=== PATIENT | female | born 1965 | race Caucasian/White ===

== ENCOUNTER 2021-02-02 08:23 | Outpatient (CLI) | payer BC, SELFPAY ==
--- NOTE | ~2021-02-02 | MM_ITS ---
EXAMINATION: MM screening nieves BI w doug HISTORY: Screening mammogram, family history of breast cancer in her mother. TECHNIQUE: Craniocaudal and mediolateral oblique 3-D tomosynthesis images were obtained and synthetic 2-D images were generated. CAD analysis was submitted and interpreted. COMPARISON: 12/07/2019, 08/24/2018, 08/19/2017 BREAST PARENCHYMAL COMPOSITION: The breasts are heterogeneously dense, which may obscure small masses . FINDINGS: RIGHT BREAST: An asymmetry is present in the posterior third of the outer breast 7 cm from the nipple on the craniocaudal view. LEFT BREAST: An asymmetry is present in the far posterior third of the outer breast 9 cm from the nip ple on the craniocaudal view. IMPRESSION: 1. Bilateral breast asymmetries. 2. Additional mammographic views and possible breast ultrasound are recommended. BI-RADS Category 0: Incomplete: Needs additional imaging evaluation. Reviewed, dictated and finalized at location A. IMPRESSION: 1. Bilateral breast asymmetries. 2. Additional mammographic views and possible breast ultrasound are recommended . BI-RADS Category 0: Incomplete: Needs additional imaging evaluation.
== END 2021-02-02 08:24 | disposition home or self-care (01) ==
LOC: CHSIMG 08:26
PROVIDERS: PCP Family Medicine; Visit Provider Family Medicine
DX: Z12.31 Encounter for screening mammogram for malignant neoplasm of breast (principal)
CPT/HCPCS: 77063; 77067

== ENCOUNTER 2021-02-26 09:49 | Outpatient (CLI) | payer BC, SELFPAY ==
--- NOTE | ~2021-02-26 | MM_ITS ---
EXAMINATION: MM diagnostic nieves BI w doug HISTORY: Bilateral breast asymmetries on screening mammogram TECHNIQUE: Additional 3-D tomosynthesis images of the breasts were performed and synthetic 2-D images were generated. CAD analysis was submitted and interpreted. COMPARISON: 02/02/2021, 12/07/2019,08/24/2018 FINDINGS: There is a return to baseline fibroglandular appearance with spot compression of both breas ts in the areas questioned on screening mammogram. No suspicious mass, calcification, or architectura l distortion are identified. IMPRESSION: 1. No mammographic evidence of malignancy. 2. Recommend routine screening mammography in one year. BI-RADS Category 1: Negative Reviewed, dictated and finalized at location A.
== END 2021-02-26 09:50 | disposition home or self-care (01) ==
LOC: CHSIMG 09:51
PROVIDERS: PCP Family Medicine; Visit Provider Nurse Practitioner Family
DX: R92.8 Other abnormal and inconclusive findings on diagnostic imaging of breast (principal)
CPT/HCPCS: 77062; 77066; G0279

== ENCOUNTER 2021-09-05 10:07 | Outpatient (CLI) | payer BC, SELFPAY ==
[2021-09-05 11:02] LABS: Alanine Aminotransferase 29 U/L (14-59); Albumin Level 4.1 g/dL (3.4-5.0); Alkaline Phosphatase 55 U/L (46-116); Anion Gap 9 mmol/L (8-16); Aspartate Amino Transferase 11 U/L (15-37); Bilirubin,Total 0.9 mg/dL (0.00-1.00); Blood Urea Nitrogen 19 mg/dL (7-18); Calcium 9.2 mg/dL (8.5-10.1); Carbon Dioxide 32 mmol/L (21-32); Chloride 103 mmol/L (98-108); Estimated Glomerular Filt Rate > 60; Glucose 102 mg/dL (70-99); Osmolality Calculated 300 mOsm/kg (285-295); Potassium 4.3 mmol/L (3.5-5.1); Sodium 144 mmol/L (136-145)
== END 2021-09-05 10:08 | disposition home or self-care (01) ==
LOC: CHSLAB 10:09
PROVIDERS: PCP Family Medicine; Visit Provider Student in an Organized Health Care Education/Training Program
DX: R79.89 Other specified abnormal findings of blood chemistry (principal)
CPT/HCPCS: 36415; 80053

== ENCOUNTER 2021-09-07 10:13 | Outpatient (CLI) | payer BC, SELFPAY ==
--- NOTE | ~2021-09-07 | US_ITS ---
US breast RT limited DATE: 09/07/2021 10:40 INDICATION: Right axillary and lateral breast pain for 10 days TECHNIQUE: Real-time and color flow imaging and right axilla and and areas of clinical complaint at r ight lower and upper outer quadrants COMPARISON: 02/26/2021 bilateral diagnostic mammogram FINDINGS: 12:00 3 cm from nipple: 2.5 x 3.4 mm mildly irregular hypoechoic lesion without internal vascularity or posterior shadowing; six-month ultrasound follow-up is recommended. 7:00 5 cm from nipple: Parallel circumscribed sonolucency measuring 2.8 x 5.3 x 8.9 mm, without inter nal vascularity or posterior shadowing, benign in appearance 7:00 3 cm from nipple: Parallel circumscribed sonolucency measuring 2 x 3.8 x 4.3 mm, without interna l vascularity or posterior shadowing, likely a small cyst 8:00 5 cm from nipple: Parallel circumscribed sonolucency measuring 2.8 x 4 x 8 mm, with through rodriguez smission, consistent with cyst, minimally septated. IMPRESSION: Probable benign 2.5 x 3.4 mm hypoechoic lesion at 12:00 3 cm from nipple; recommend 6 mon th targeted ultrasound follow-up BI-RADS Category 3: Probably benign Reviewed, dictated and finalized at Location A. Reviewed, dictated and finalized at location A. IMPRESSION: Probable benign 2.5 x 3.4 mm hypoechoic lesion at 12:00 3 cm from n ipple; recommend 6 month targeted ultrasound follow-up BI-RADS Category 3: Probably benign
== END 2021-09-07 10:14 | disposition home or self-care (01) ==
LOC: CHSIMG 10:16
PROVIDERS: PCP Family Medicine; Visit Provider Student in an Organized Health Care Education/Training Program
DX: N64.4 Mastodynia (principal)
CPT/HCPCS: 76642

== ENCOUNTER 2022-05-03 10:26 | Emergency (ER) | payer BC, SELFPAY ==
--- NOTE | 2022-05-03 10:30 | ED.SKABFB ---
HPI - Skin/Abscess/Foreign Bdy General Chief complaint: Skin/Abscess/Foreign Body Stated complaint: right thigh raised skin Time Seen by Provider: 05/03/22 10:30 Source: patient Mode of arrival: ambulatory Limitations: no limitations History of Present Illness HPI narrative: Ms. De La Cruz is a 56-year-old female patient presenting to the clinic today with complaints of red raised skin to the right thigh. She reports she fell 2 weeks ago and injured her right hand and landed on her right hip. States that she had x-rays on this hip and they were normal. Has a raised area of skin to the right lateral hip that is mildly painful at times when she is laying on it otherwise does not cause her any pain. She is wanting to know what to do for this Related Data Home Medications Medication Instructions Recorded Confirmed clonazepam 1 mg tablet (Klonopin) 1 mg PO DAILY 08/02/20 Allergies Allergy/AdvReac Type Severity Reaction Status Date / Time No Known Allergies Allergy Mild Verified 05/03/22 10:42 COLONSCOPY ANESTHESIA Allergy Severe BRADYCARDIA Uncoded 08/02/20 12:26 PRODUCT? Review of Systems Review of Systems: Pertinent positives per HPI. Patient denies any fever, chills, headache, visual changes, dizziness, cough, runny nose, sore throat, shortness of breath, chest pain, palpitations, nausea, vomiting, diarrhea, constipation, abdominal pain, or any urinary issues. PMFSH Past Medical History Medical History Raynauds syndrome REM sleep behavior disorder Trigeminal neuralgia Vaginal delivery x 3 Surgical History Surgical History History of hysterectomy History of renal stent History of tonsillectomy History of tubal ligation Family History Family History Father Family history of hypercholesterolemia Hypertension Malignant neoplasm of prostate Mother Hypertension Family history of malignant neoplasm of breast in first degree relative Grandparent Carcinoma of colon Other Family history of malignant neoplasm of breast Social History Social History Smoking status: Never smoker Alcohol intake: never Substance use: never Comments At the time of my signature, I reviewed and agree with the nursing past medical, surgical, social, and family history. There is no relevant family history pertinent to the patient complaint. Exam Narrative: General: Well-developed, well nourished, in no apparent distress Head: Normocephalic, atraumatic. Cardio: Regular rate and rhythm, s1 and s2 normal, no murmur appreciated. Resp: Clear to auscultation bilaterally, no rhonchi, rales, wheezing or rubs. Integumentary: Warden, warm, and dry, intact without lesion, old bruising noted to the right lateral hip as well as raised adipose tissue to area that is nonpainful to palpation. Course Course Emergency Course: Portions of this record may have been created with voice recognition software. Level of Care: Express Care Visit Vital Signs Vital signs: Vital signs reviewed MDM - Skin/Abscess/Foreign Bdy MDM Narrative Medical decision making narrative: At the time of visit patient was resting comfortably on the exam table. She has some old bruising to her right lateral hip with some raised adipose tissue. I suspect the patient has soft tissue injury versus hematoma but less likely the hematoma as this does not appear to be hard with palpation. I feel that this may be some displaced adipose tissue. Recommend getting an ultrasound for definitive cause. Supportive measures were discussed with the patient she voiced understand discharge instructions and agrees to treat plan Differential Diagnosis Differential diagnosis: Likely abscess of skin or subcutaneous tissue, cellulitis
[2022-05-03 10:36] VITALS: BP 130/83; PULSE 71; RESP 18; TEMP 37.4; O2SAT 100
== END 2022-05-03 10:50 | disposition home or self-care (01) ==
PROVIDERS: Emergency Provider Nurse Practitioner Family; PCP Family Medicine
DX: S79.921A Unspecified injury of right thigh, initial encounter (principal); X58.XXXA Exposure to other specified factors, initial encounter; I73.00 Raynaud's syndrome without gangrene
CPT/HCPCS: 99212; G0463

== ENCOUNTER 2022-05-07 07:11 | Outpatient (CLI) | payer BC, SELFPAY ==
--- NOTE | ~2022-05-07 | US_ITS ---
EXAMINATION: US soft tissue LE RT DATE: 05/07/2022 07:46 INDICATION: Right lateral thigh soft tissue mass following a fall on 04/20/2022. TECHNIQUE: Grayscale and Doppler ultrasound images of the right lateral thigh were obtained. COMPARISON: None. FINDINGS: Mostly anechoic fluid collection in the subcutaneous and cutaneous tissues of the right lat eral thigh, containing lobular echogenic nonvascular debris. IMPRESSION: 1. Likely subacute and resolving subcutaneous/cutaneous right thigh hematoma. 2. Recommend clinical follow-up to resolution. Additional imaging would be warranted if clinical find ings do not resolve or there is persistent pain. Reviewed, dictated and finalized at location K. IMPRESSION: 1. Likely subacute and resolving subcutaneous/cutaneous right thigh hematoma. 2. Recommend clinical follow-up to resolution. Additional imaging would be kate anted if clinical findings do not resolve or there is persistent pain.
== END 2022-05-07 07:12 | disposition home or self-care (01) ==
LOC: CHSIMG 07:13
PROVIDERS: PCP Family Medicine; Visit Provider Family Medicine
DX: R22.41 Localized swelling, mass and lump, right lower limb (principal)
CPT/HCPCS: 76882

== ENCOUNTER 2022-05-10 08:53 | Outpatient (CLI) | payer BC, SELFPAY ==
--- NOTE | ~2022-05-10 | CT_ITS ---
EXAMINATION: CT soft tissue neck w con DATE: 05/10/2022 09:58 INDICATION: Neck mass, feels a lump in the throat when swallowing. Sometimes chokes or a source x3 mo nths. TECHNIQUE: Computed tomography (CT) of the neck was performed with 100 mL Omnipaque 300 intravenous c ontrast. Automated exposure control and iterative reconstruction technique were employed. The dose-le ngth product was 400.94 mGy-cm. COMPARISON: None FINDINGS: The thyroid gland is unremarkable. The submandibular and parotid glands are symmetric. There is n o cervical lymphadenopathy. There are no masses identified. The superior mediastinum is unremarka ble. The airway is unremarkable. Parapharyngeal and pre-glottic fat planes are preserved. No si gnificant arterial occlusion or stenosis. The orbits are unremarkable. Visualized sinuses and mast oid air cells are well aerated. Visualized lung parenchyma clear. No acute osseous finding. IMPRESSION: 1. Normal CT soft tissue neck findings. Reviewed, dictated and finalized at location K.
== END 2022-05-10 08:54 | disposition home or self-care (01) ==
LOC: CHSIMG 08:54
PROVIDERS: PCP Family Medicine
DX: R22.1 Localized swelling, mass and lump, neck (principal)
CPT/HCPCS: 70491; Q9967

== ENCOUNTER 2022-06-19 12:23 | Emergency (ER) | payer BC, SELFPAY ==
--- NOTE | 2022-06-19 12:36 | ED.FEMALEGU ---
HPI - Female Genitourinary General Chief complaint: Urogenital-Female Stated complaint: Urinary Problem Time Seen by Provider: 06/19/22 12:30 Source: patient and RN notes reviewed History of Present Illness HPI Narrative: Patient is a 56-year-old female who presents the urgent care with complaints of a possible UTI. Patient states that she has a strong history of urinary tract infections but after a stent was placed in the kidney over 1 year ago she has not had a urinary tract. Patient states at 1130 this morning she felt some urgency, frequency, suprapubic pressure and noticed blood when she wiped. Patient denies any nausea, vomiting, fever, abdominal pain or low back pain. Patient has not done anything [id number] for her symptoms. No other acute complaints. No acute distress noted. Patient aware of the plan of care. Some parts of this dictation were generated by voice recognition software and may contain typographical and/or grammatical inaccuracies. Related Data Home Medications Medication Instructions Recorded Confirmed clonazepam 1 mg tablet (Klonopin) 1.5 mg PO HS 08/02/20 06/19/22 melatonin 10 mg tablet 10 mg PO HS 06/19/22 06/19/22 Allergies Allergy/AdvReac Type Severity Reaction Status Date / Time COLONSCOPY ANESTHESIA Allergy Severe BRADYCARDIA Uncoded 06/19/22 12:37 PRODUCT? Review of Systems Review of Systems: CONSTITUTIONAL: Denies fever, chills, or sweats. EYES: Denies visual changes, redness, or discharge. ENT: Denies rhinorrhea, congestion, sore throat, or otalgia. CARDIOVASCULAR: Denies chest pain, palpitations, or edema. RESPIRATORY: Denies cough or dyspnea. GASTROINTESTINAL: Denies abdominal pain, nausea, vomiting, or diarrhea. GENITOURINARY: Reports of urinary frequency, urgency, suprapubic pressure and blood in the urine SKIN: Denies rash or itching. MUSCULOSKELETAL: Denies back pain, joint pain, or myalgia. NEUROLOGIC: Denies headache, numbness, or weakness. All other systems reviewed are negative, except as documented in HPI. [facility] Past Medical History Medical History Raynauds syndrome REM sleep behavior disorder Trigeminal neuralgia Vaginal delivery x 3 Surgical History Surgical History History of hysterectomy History of renal stent History of tonsillectomy History of tubal ligation Family History Family History Father Family history of hypercholesterolemia Hypertension Malignant neoplasm of prostate Mother Hypertension Family history of malignant neoplasm of breast in first degree relative Grandparent Carcinoma of colon Other Family history of malignant neoplasm of breast Social History Social History Smoking status: Never smoker Alcohol intake: never Substance use: never Comments At the time of my signature, I reviewed and agree with the nursing past medical, surgical, social, and family history. There is no relevant family history pertinent to the patient complaint. Exam Narrative: GENERAL: This is a well-nourished, well-developed patient, in no apparent distress. HEAD: normocephalic, atraumatic. EYES: PERRL. Sclera clear/white. Vision is grossly intact. EARS: External ears normal NOSE: External nose normal with no obvious nasal discharge, nares without redness, no rhinorrhea. THROAT: Mucous membranes moist NECK: Neck supple CARDIOVASCULAR: Regular rate and rhythm without murmurs, gallops, or rubs. RESPIRATORY: Clear to auscultation. Breath sounds equal bilaterally. No wheezes, rales, or rhonchi. GASTROINTESTINAL: Abdomen soft, non-tender, nondistended. Bowel sounds are active. No hepato-splenomegaly, or palpable masses. No guarding. SKIN: warm, intact with no suspicious lesions or rash, good textu
[2022-06-19 12:41] VITALS: BP 118/78; PULSE 71; RESP 16; TEMP 36.6; O2SAT 99
[2022-06-19 12:42] VITALS: BP 118/78; PULSE 71; RESP 16; TEMP 36.6; O2SAT 99
== END 2022-06-19 12:57 | disposition home or self-care (01) ==
PROVIDERS: Emergency Provider Nurse Practitioner Family; PCP Family Medicine
DX: N39.0 Urinary tract infection, site not specified (principal); I73.00 Raynaud's syndrome without gangrene; Z96.1 Presence of intraocular lens; G47.9 Sleep disorder, unspecified
CPT/HCPCS: 81003; 87077; 87086; 87186; 99213; G0463

== ENCOUNTER 2022-08-15 07:47 | Outpatient (RCR) | payer BC, SELFPAY ==
--- NOTE | 2022-08-15 08:53 | PTOPEVAL1 ---
Assessment and note entered by JT File, PT Evaluation Information Assessment Status Evaluation Diagnosis L knee pain Onset 08/07/22 Subjective Information patient reports she fell and hurt her knee. she reports she had a broken hand at the time and slipped in her kitchen. she reports she feel and protected the R hand and fell on her knee. she reports she has increased pain with movement. she reports keeping the L knee slightly bent feels good. she reports she did have an xray of the L knee. she reports she has not had an mri of the L knee. she reports the xrays show tri-compartmental OA and a joint effusion. she reports she is going to [employer] in october and wants to be able to walk. she reports she has increased pain with walking and it makes her walk with a limp and then her hip and back hurts. Reported Pain Level Pain Score 1: Self Report Assessment PT Clinical Summary mrs. starr presents to skilled PT services for evaluation and treatment of L knee pain following a fall on the L knee. she presents this date with tenderness to palpation of the L patellar tendon/ inferior lateral patella, tenderness at the pes anserine bursa, and pain with terminal knee extension of the L LE. her symptoms indicate an injury to the L patellar tendon and pes anserine burse. she would do well to attend and participate in skilled PT services to improve her objective/ functional deficits and progress towards a return to her prior level functional activity performance /quality of life. Plan of Care Interventions Electrical Stimulation,Gait Training,Hot Pack/Cold Pack,Manual Therapy,Neuro Re-education,Patient/ Caregiver Educati,Therapeutic Activities, Therapeutic Exercise PT Services Indicated Yes Treatment Frequency and 2x weekly for 8 visits Duration These treatments will address the objective and functional deficits as defined above. The patient will be advanced safely and appropriately in order for the patient to progress towards his/her prior level of function. Additional exercises will be introduced and as well as a comprehensive home exercise program upon discharge, if needed, ?to ensure carryover of functional gains achieved in the clinic. This treatment plan has been reviewed and agreement upon by the patient.
--- NOTE | 2022-09-11 08:26 | PTOPREEVAL ---
Assessment and note entered by JT File, PT Evaluation Information Assessment Status Re-evaluation Diagnosis L knee pain Onset 08/07/22 Subjective Information patient reports she does feel better overall, but she continues to have pain in the L knee at times. she reports she feels something gets caught in the knee, and then it will pop or release. she reports she typically is worse at night, but has only had bouts of 5/10 pain in the L knee a few times in the past week. she reports she then feels better in the morning. Reported Pain Level Pain Score 0: Self Report Assessment PT Clinical Summary mrs. starr presents to skilled PT services with continued discomfort/pain in the L knee. she presents this date with continued symptoms and signs of L pes anserine bursitits/distal medial hamstrings tendonitis. she also presents with signs and symptoms of L medial meniscus tear. she would do well to continue skilled PT as she has only met goal for HEP education this date. she is progressing and notes improvement, but would do well to continue therapy to focus more on the hamstrings pain and improvement in gait mechanics. Plan of Care Interventions Gait Training,Hot Pack/Cold Pack,Manual Therapy, Neuro Re-education,Patient/Caregiver Educati, Therapeutic Activities,Therapeutic Exercise PT Services Indicated Yes Treatment Frequency and continue skilled PT 2x weekly for 4 more visits Duration These treatments will address the objective and functional deficits as defined above. The patient will be advanced safely and appropriately in order for the patient to progress towards his/her prior level of function. Additional exercises will be introduced and as well as a comprehensive home exercise program upon discharge, if needed, ?to ensure carryover of functional gains achieved in the clinic. This treatment plan has been reviewed and agreement upon by the patient.
--- NOTE | 2022-09-25 08:32 | PTOPDC ---
Assessment and note entered by JT File, PT Evaluation Information Assessment Status Discharge Diagnosis L knee pain Onset 08/07/22 Subjective Information patient reports she is doing well overall. she reports she has no pain in her L knee. she reports she has been compliant with exercises at home. she reports although she is pain free now, she is nervous about all the walking on her upcoming trip to [place]. Reported Pain Level Pain Score 0: Self Report Assessment PT Clinical Summary mrs. starr presents to skilled PT for her 12th skilled therapy visit this date. as of this date, she has no pain in the L knee, and displays full strength and rom of the L knee. she ambulates with normal gait mechanics and no antalgia. she has met all but 1 goal for skilled PT. she would do well to DC skilled PT this date and continue with HEP independent at home. Plan of Care Treatment Frequency and DC to independent HEP Duration
== END 2022-09-25 16:38 | disposition home or self-care (01) ==
LOC: CHSPT 07:47
PROVIDERS: PCP Family Medicine; Visit Provider Family Medicine Sports Medicine
DX: M25.562 Pain in left knee (principal)
CPT/HCPCS: 97014; 97110; 97112; 97140; 97161; 97530; G0283

== ENCOUNTER 2022-11-07 07:58 | Outpatient (CLI) | payer BC, SELFPAY ==
[2022-11-07 08:25] LABS: Basophils Absolute Auto 0.03 K/mm3 (0.00-0.10); Basophils Percent Auto 0.5 % (0.0-1.0); Eosinophils Absolute Auto 0.05 K/mm3 (0.02-0.50); Eosinophils Percent Auto 0.8 % (1.0-6.0); Hematocrit 44.9 % (35.0-49.0); Hemoglobin 14.2 g/dL (12.0-15.0); Immature Granulocyte Absolute 0.03 K/mm3 (0.00-0.00); Immature Granulocyte Percent A 0.5 % (0.0-0.0); Lymphocytes Absolute Auto 1.62 K/mm3 (1.10-4.50); Mean Corpuscular HGB Conc 31.6 g/dL (32.0-36.0); Mean Corpuscular Hemoglobin 29.2 pg (27.0-31.0); Mean Corpuscular Volume 92.2 fL (78.0-102.0); Mean Platelet Volume 10.2 fl (9.2-11.8); Monocytes Absolute Auto 0.41 K/mm3 (0.10-0.90); Monocytes Percent Auto 6.3 % (2.0-11.0); Neutrophils Absolute Auto 4.3 K/mm3 (1.7-7.2); Neutrophils Percent Auto 66.9 % (50.0-70.0); Platelet Count Result 273 K/mm3 (150-420); Red Blood Count 4.87 M/mm3 (4.20-5.40); Red Cell Distribution Width 13.4 % (11.6-14.4); White Blood Count 6.5 K/mm3 (4.8-10.8)
[2022-11-07 09:27] LABS: Alanine Aminotransferase 21 U/L (14-59); Albumin Level 3.9 g/dL (3.4-5.0); Alkaline Phosphatase 55 U/L (46-116); Anion Gap 6 mmol/L (8-16); Aspartate Amino Transferase < 10 U/L (15-37); Bilirubin,Total 0.6 mg/dL (0.00-1.00); Blood Urea Nitrogen 18 mg/dL (7-18); Calcium 9.2 mg/dL (8.5-10.1); Carbon Dioxide 30 mmol/L (21-32); Chloride 106 mmol/L (98-108); Cholesterol 258 mg/dL (0-200); Estimated Glomerular Filt Rate > 60; Glucose 95 mg/dL (70-99); HDL Direct 87 mg/dL (40-60); LDL Cholesterol Calculated 161 mg/dL (<130); Osmolality Calculated 295 mOsm/kg (285-295); Potassium 4.7 mmol/L (3.5-5.1); Sodium 142 mmol/L (136-145); Thyroid Stimulating Hormone 2.03 uIU/mL (0.36-3.74); Total Protein 6.9 g/dL (6.4-8.2); Triglycerides 50 mg/dL (0-150)
[2022-11-10 18:08] LABS: Vitamin D 25 Hydroxy 31 ng/mL (30-100)
== END 2022-11-07 07:59 | disposition home or self-care (01) ==
LOC: CHSLAB 07:59
PROVIDERS: PCP Family Medicine; Visit Provider Student in an Organized Health Care Education/Training Program
DX: Z00.00 Encounter for general adult medical examination without abnormal findings (principal)
CPT/HCPCS: 36415; 80053; 80061; 82306; 84443; 85025

== ENCOUNTER 2023-04-28 07:23 | Outpatient (CLI) | payer BC, SELFPAY ==
--- NOTE | ~2023-04-28 | MM_ITS ---
EXAMINATION: MM screening nieves BI w doug HISTORY: Screening mammogram TECHNIQUE: Craniocaudal and mediolateral oblique 3-D tomosynthesis images were obtained and synthetic 2-D images were generated. CAD analysis was submitted and interpreted. COMPARISON: September 07, 2021 Limited right breast ultrasound examination February 26, 2021 bilateral diagnostic mammogram February 02, 2021, December 07, 2019 bilateral screening mammogram examinations BREAST PARENCHYMAL COMPOSITION: The breasts are heterogeneously dense, which may obscure small masses . FINDINGS: There is a biopsy marker on the right; history of prior benign breast biopsy. Occasional be nign calcifications. There is no evidence of suspicious mass, calcification, or architectural distort ion to suggest malignancy in either breast. There has been no suspicious interval change. IMPRESSION: 1. No mammographic evidence of malignancy. 2. Recommend routine screening mammography in one year. BI-RADS Category 2: Benign finding(s). Reviewed, dictated and finalized at location A.
== END 2023-04-28 07:24 | disposition home or self-care (01) ==
LOC: CHSIMG 07:25
PROVIDERS: PCP Family Medicine; Visit Provider Family Medicine
DX: Z12.31 Encounter for screening mammogram for malignant neoplasm of breast (principal)
CPT/HCPCS: 77063; 77067

== ENCOUNTER 2023-10-28 18:23 | Emergency (ER) | payer BC, SELFPAY ==
--- NOTE | ~2023-10-28 | XR_ITS ---
EXAMINATION: XR foot RT min 3V DATE: 10/28/2023 18:38 INDICATION: Right foot pain. Fall. TECHNIQUE: 4 views of right foot were obtained. COMPARISON: Right foot radiographs 08/16/2019 FINDINGS: There is an oblique fracture of diaphysis of fifth metatarsal. The distal fracture fragment demonstrates 1 mm medial and dorsal displacement. There is mild osteoarthritis of some of the interp halangeal joints. There are enthesophytes at the posterior and plantar aspects of calcaneal tuberosit y. IMPRESSION: 1. Oblique fracture of diaphysis of fifth metatarsal. Reviewed, dictated and finalized at location E. 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
[2023-10-28 18:24] VITALS: BP 135/80; PULSE 71; RESP 17; TEMP 37.1; O2SAT 100
--- NOTE | 2023-10-28 18:43 | ED.GENADULT ---
HPI - General Adult General Chief complaint: Extremity Injury, Lower Stated complaint: right foot pain History of Present Illness HPI narrative: this is a 58-year-old female presenting ED with foot pain. Patient was walking when she tripped over some John wrapping paper. She developed pain swelling and bruising to the lateral portion of her foot. no other injuries. Patient is established with Dr. Reeves-orthopedics. Related Data Home Medications Medication Instructions Recorded Confirmed clonazepam 1 mg tablet (Klonopin) 1.5 mg PO HS 08/02/20 10/28/23 melatonin 10 mg tablet 10 mg PO HS 06/19/22 10/28/23 Allergies Allergy/AdvReac Type Severity Reaction Status Date / Time COLONSCOPY ANESTHESIA Allergy Severe BRADYCARDIA Uncoded 10/28/23 18:36 PRODUCT? PMFSH Past Medical History Medical History Raynauds syndrome REM sleep behavior disorder Trigeminal neuralgia Vaginal delivery x 3 Surgical History Surgical History History of hysterectomy History of renal stent History of tonsillectomy History of tubal ligation Family History Family History Father Family history of hypercholesterolemia Hypertension Malignant neoplasm of prostate Mother Hypertension Family history of malignant neoplasm of breast in first degree relative Grandparent Carcinoma of colon Other Family history of malignant neoplasm of breast Social History Social History Smoking status: Never smoker Alcohol intake: never Substance use: never Exam Narrative: APPEARANCE: No apparent distress. Head: atraumatic. EYES: EOMI, NOSE: Atraumatic NECK: Trachea midline RESPIRATORY: No increased rate of breathing CARDIOVASCULAR: RRR, ABDOMINAL: Non-distended MUSCULOSKELETAl: tenderness to palpation over the 5th metatarsal with swelling and ecchymosis. Cap refill less than 2 seconds sensation intact. NEURO: Alert. Moving 4/4 extremities SKIN:: Warm, dry. Normal color PSYCHIATRIC: Normal affect Course Vital Signs Vital signs: Vital Signs Temperature 98.7 F 10/28/23 18:24 Pulse Rate 71 10/28/23 18:24 Respiratory Rate 17 10/28/23 18:24 Blood Pressure 135/80 10/28/23 18:24 Pulse Oximetry 100 10/28/23 18:24 Oxygen Delivery Room Air 10/28/23 18:24 Temperature 98.7 F 10/28/23 18:24 Pulse Rate 71 10/28/23 18:24 Respiratory Rate 17 10/28/23 18:24 Blood Pressure 135/80 10/28/23 18:24 Pulse Oximetry 100 10/28/23 18:24 Oxygen Delivery Room Air 10/28/23 18:24 Medical Decision Making MDM Narrative Medical decision making narrative: -Course: 58-year-old female presenting right foot pain. X-ray showed a mildly displaced comminuted diaphyseal fracture of the 5th metatarsal. Patient is established with Dr. Reeves. Patient was placed in a posterior splint. instructed to follow-up with Ortho in 3-5 days. 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 -Procedures: Posterior mold splint -Interventions: Motrin, Tylenol -Shared decision making / Disposition: discharged with ortho follow-up in 3-5 days. -RX Motrin, Tylenol Vital Signs Vital Signs: Vital Signs Temperature 98.7 F 10/28/23 18:24 Pulse Rate 71 10/28/23 18:24 Respiratory Rate 17 10/28/23 18:24 Blood Pressure 135/80 10/28/23 18:24 Pulse Oximetry 100 10/28/23 18:24 Oxygen Delivery Room Air 10/28/23 18:24 Temperature 98.7 F 10/28/23 18:24 Pulse Ra
[2023-10-28 19:00] VITALS: BP 135/80; PULSE 71; RESP 17; TEMP 37.1; O2SAT 100
[2023-10-28] MEDS: ACETAMINOPHEN 500 MG TABLET 1000 MG PO (19:03)
[2023-10-28] MEDS: IBUPROFEN 400 MG TABLET 800 MG PO (19:04)
== END 2023-10-28 19:00 | disposition home or self-care (01) ==
LOC: CHSED 19:00
PROVIDERS: Emergency Provider Emergency Medicine; PCP Family Medicine
DX: S92.351A Displaced fracture of fifth metatarsal bone, right foot, initial encounter for closed fracture (principal); Z79.899 Other long term (current) drug therapy; W01.0XXA Fall on same level from slipping, tripping and stumbling without subsequent striking against object, initial encounter
CPT/HCPCS: 29515; 73630; 99284; A9270

== ENCOUNTER 2023-11-14 17:48 | Emergency (ER) | payer BC, SELFPAY ==
[2023-11-14 17:52] VITALS: BP 125/71; PULSE 69; RESP 18; TEMP 37; O2SAT 100
--- NOTE | 2023-11-14 18:44 | ED.URI ---
HPI - URI/Sore Throat General Chief Complaint: Upper Respiratory Infection Stated Complaint: throat/headache/chills Time Seen by Provider: 11/14/23 18:35 Source: patient, RN notes reviewed and old records reviewed Mode of arrival: ambulatory Limitations: no limitations History of Present Illness HPI Narrative: 58-year-old female who presents to [facility] with complaints cough, sore throat, fatigue, ear pain,headache and chills denies any known fevers.Patient reports that her throat is increasingly sore with symptoms starting on Friday 4-5 days ago. Patient just returned from being on cruise ship. Patient concerned for infection and can't see mother in [place]. Patient reports she has been taking Tylenol and Ibuprofen. MD elicited complaint: cough, sore throat and other (headache, chills, ear pain) Onset (ago): day(s) (5 days) Severity: moderate Able to tolerate fluids by mouth: Yes Treatments prior to arrival: acetaminophen and ibuprofen Related Data Home Medications Medication Instructions Recorded Confirmed clonazepam 1 mg tablet (Klonopin) 1.5 mg PO HS 08/02/20 10/29/23 melatonin 10 mg tablet 10 mg PO HS 06/19/22 10/29/23 Adult Probiotic 11/14/23 Natural Co-Q10 11/14/23 Vitamin B 11/14/23 ergocalciferol (vitamin D2) 1,250 11/14/23 mcg (50,000 unit) capsule ezetimibe 10 mg tablet mg 11/14/23 tacrolimus 0.1 % topical ointment topical 11/14/23 Allergies Allergy/AdvReac Type Severity Reaction Status Date / Time COLONSCOPY ANESTHESIA Allergy Severe BRADYCARDIA Uncoded 11/14/23 18:16 PRODUCT? Review of Systems Review of Systems: CONSTITUTIONAL:Reports malaise, chills, sweats, no known fever. EYES: Denies visual changes, redness, or discharge. ENT: Reports rhinorrhea, congestion, no sinus pain, no otalgia and positive sore throat. CARDIOVASCULAR: Denies chest pain, palpitations, or edema. RESPIRATORY: Reports cough.? Denies dyspnea. GASTROINTESTINAL: Denies abdominal pain, nausea, vomiting, diarrhea SKIN: Denies rash or itching. MUSCULOSKELETAL: Denies myalgia. NEUROLOGIC: Reports headache. All systems reviewed & are unremarkable except as noted in HPI and below PMFSH Past Medical History Medical History Raynauds syndrome REM sleep behavior disorder Trigeminal neuralgia Vaginal delivery x 3 Surgical History Surgical History History of hysterectomy History of renal stent History of tonsillectomy History of tubal ligation Family History Family History Father Family history of hypercholesterolemia Hypertension Malignant neoplasm of prostate Mother Hypertension Family history of malignant neoplasm of breast in first degree relative Grandparent Carcinoma of colon Other Family history of malignant neoplasm of breast Social History Social History Smoking status: Never smoker Alcohol intake: never Substance use: never 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 There is no relevant family history pertinent to the presenting complaint Exam Narrative: GENERAL: Well-appearing, well-nourished, and in no acute distress. HEAD: Normocephalic EYES: PERRLA, conjunctivae clear ENT: Nares clear, turbinates edematous and erythematous, clear discharge. Mucous membranes moist. TM pearly zavaleta with dull light reflex bilaterally; no tragal tenderness. Oropharynx erythematous without lesions. Tonsils not present and throat without exudate, no drooling, no hoarseness, no trismus, uvula midline. NECK: Supple. No lymphadenopathy CHEST: Clear to
== END 2023-11-14 19:00 | disposition home or self-care (01) ==
PROVIDERS: Emergency Provider Registered Nurse; PCP Family Medicine
DX: R05.9 Cough, unspecified (principal); J06.9 Acute upper respiratory infection, unspecified; Z20.822 Contact with and (suspected) exposure to COVID-19; Z79.899 Other long term (current) drug therapy
CPT/HCPCS: 87081; 87426; 87804; 87880; 99213; C9803; G0463

== ENCOUNTER 2023-11-24 08:41 | Outpatient (CLI) | payer BC, SELFPAY ==
--- NOTE | ~2023-11-24 | XR_ITS ---
Right foot Technique: AP, oblique, and lateral views were obtained. Clinical History: Fracture follow-up COMPARISON: 10/28/2023 Findings: Oblique fracture of the fifth metatarsal shaft again noted, with minimal interval healing. No new fracture or dislocation seen. Joint spaces are preserved without erosive or degenerative tuttle e. Plantar calcaneal spur present. Soft tissues are unremarkable. Impression: Minimal interval healing of fifth metatarsal shaft oblique fracture. Reviewed, dictated and finalized at location M. STORER Impression: Minimal interval healing of fifth metatarsal shaft oblique fracture.
== END 2023-11-24 08:42 | disposition home or self-care (01) ==
LOC: CHSIMG 08:43
PROVIDERS: PCP Family Medicine; Visit Provider Orthopaedic Surgery
DX: S92.351D Displaced fracture of fifth metatarsal bone, right foot, subsequent encounter for fracture with routine healing (principal); M79.671 Pain in right foot
CPT/HCPCS: 73630

== ENCOUNTER 2024-03-20 08:25 | Emergency (ER) | payer BC, SELFPAY ==
--- NOTE | ~2024-03-20 | XR_ITS ---
XR toe 1st RT min 2V DATE: 03/20/2024 08:40 INDICATION: Stubbed right great toe. Pain TECHNIQUE: 3 views COMPARISON: 11/24/2023 right foot FINDINGS: No fracture or dislocation is detected. Mild osteophytosis at the first metatarsophalangeal joint. IMPRESSION: No fracture or dislocation Reviewed, dictated and finalized at location A. IMPRESSION: No fracture or dislocation
[2024-03-20 08:25] VITALS: BP 131/69; PULSE 60; RESP 17; TEMP 36.6; O2SAT 100
--- NOTE | 2024-03-20 08:55 | ED.LOWEXIN ---
HPI - Extremity Injury (Lower) General Chief Complaint: Extremity Injury, Lower Stated Complaint: R toe injury Time Seen by Provider: 03/20/24 08:29 Source: patient Mode of arrival: ambulatory Limitations: no limitations History of Present Illness HPI Narrative: patient is a 58-year-old female with no significant past medical history that presents today with a right 1st big toe injury. Patient stubbed her toe. It turned black and blue is currently back in blue and hurts to walk on it. She wants to make sure that is not broken. Pain scale is about 5 in 10. She still has full movement but does have some edema. MD complaint: foot injury Onset (ago): hour(s) Injury: Right: toes Type of Injury: blunt Place: home Severity: moderate Severity scale (1-10): 4 Relieving factors: NSAID Exacerbating factors: nothing Context: fall Associated symptoms: snap/pop sensation Other symptoms: none Treatments prior to arrival: cold therapy Related Data Home Medications Medication Instructions Recorded Confirmed clonazepam 1 mg tablet (Klonopin) 1.5 mg PO HS 08/02/20 03/20/24 melatonin 10 mg tablet 10 mg PO HS 06/19/22 03/20/24 Adult Probiotic See Rx Instructions .Route .COMPLEX 11/14/23 03/20/24 Natural Co-Q10 See Rx Instructions .Route .COMPLEX 11/14/23 03/20/24 Vitamin B See Rx Instructions .Route .COMPLEX 11/14/23 03/20/24 ergocalciferol (vitamin D2) 1,250 See Rx Instructions .Route .COMPLEX 11/14/23 03/20/24 mcg (50,000 unit) capsule ezetimibe 10 mg tablet 10 mg PO DAILY 11/14/23 03/20/24 tacrolimus 0.1 % topical ointment See Rx Instructions .Route .COMPLEX 11/14/23 03/20/24 Allergies Allergy/AdvReac Type Severity Reaction Status Date / Time COLONSCOPY ANESTHESIA Allergy Severe BRADYCARDIA Uncoded 03/20/24 08:28 PRODUCT? Review of Systems Review of Systems: All systems reviewed & are unremarkable except as noted in HPI and below Constitutional: Constitutional: Reports no additional constitutional complaints Eyes: Eyes: Reports no additional eye complaints ENT: Reports system reviewed and no additional complaints, except as documented Cardiovascular: Cardiovascular: Reports no additional cardiovascular complaints Respiratory: Respiratory: Reports no additional respiratory complaints Gastrointestinal: Gastrointestinal: Reports no additional gastrointestinal complaints Genitourinary: Genitourinary: Reports no additional female genitourinary complaints Musculoskeletal: Musculoskeletal: Reports as per HPI Integumentary/Breasts: Skin/Breast: Reports system reviewed and no additional complaints, except as docu Neurologic: Reports system reviewed and no additional complaints, except as documented Psychiatric: Psychiatric: Reports no additional psychiatric complaints Endocrine: Endocrine: Reports no additional endocrine complaints Hematologic/Lymphatic: Hematologic/Lymphatic: Reports no additional hematologic/lymphatic complaints Allergic/Immunologic: Allergic/Immunologic: Reports no additional allergic/immunologic complaints PMFSH Past Medical History Medical History Raynauds syndrome REM sleep behavior disorder Trigeminal neuralgia Vaginal delivery x 3 Surgical History Surgical History History of hysterectomy History of renal stent History of tonsillectomy History of tubal ligation Family History Family History Father Family history of hypercholesterolemia Hypertension Malignant neoplasm of prostate Mother Hypertension Family history of malignant neoplasm of breast in first degree relative Grandparent Carcinoma of colon Other Family history of malignant neoplasm of breast Social History Social History Smoking status: Never smoker Alcohol intake: never Substance use: n
[2024-03-20 09:17] VITALS: BP 126/73; PULSE 65; RESP 17; TEMP 36.6; O2SAT 100
== END 2024-03-20 09:17 | disposition home or self-care (01) ==
PROVIDERS: Emergency Provider Family Medicine; PCP Family Medicine
DX: S93.501A Unspecified sprain of right great toe, initial encounter (principal); W22.8XXA Striking against or struck by other objects, initial encounter
CPT/HCPCS: 73660; 99283

== ENCOUNTER 2024-05-17 07:51 | Outpatient (CLI) | payer BC, SELFPAY ==
--- NOTE | ~2024-05-17 | US_ITS ---
EXAMINATION: US thyroid DATE: 05/17/2024 08:22 INDICATION: Disorder of thyroid and difficulty swallowing TECHNIQUE: Multiple ultrasound images of the thyroid were obtained. COMPARISON: None. FINDINGS: The right thyroid lobe measures 4.0 x 1.4 x 1.5 cm. The left thyroid lobe measures 4.5 x 1.4 x 1.2 c m. The thyroid isthmus measures 2 mm in thickness . There are a few small bilateral thyroid nodules w hich include solid nodules, anechoic cystic nodules and mixed solid and cystic nodules. The largest n odule on the right is a solid isoechoic TI RADS 3 nodule measuring 6 mm. The largest nodule on the le ft is a solid hypoechoic TI RADS 4 nodule measuring 4 mm. IMPRESSION: 1. There are a few bilateral 6 mm or smaller thyroid nodules, none meeting criteria for either biopsy or follow-up. Reviewed, dictated and finalized at location A. IMPRESSION: 1. There are a few bilateral 6 mm or smaller thyroid nodules, none meeting crit eria for either biopsy or follow-up.
== END 2024-05-17 07:52 | disposition home or self-care (01) ==
LOC: CHSIMG 07:53
PROVIDERS: PCP Family Medicine; Visit Provider Otolaryngology
DX: K22.4 Dyskinesia of esophagus (principal); K21.9 Gastro-esophageal reflux disease without esophagitis; E07.9 Disorder of thyroid, unspecified; E04.2 Nontoxic multinodular goiter
CPT/HCPCS: 76536

== ENCOUNTER 2024-08-20 14:08 | Outpatient (CLI) | payer BC, SELFPAY ==
--- NOTE | ~2024-08-20 | MM_ITS ---
EXAMINATION: MM screening nieves BI w doug HISTORY: Screening TECHNIQUE: Craniocaudal and mediolateral oblique 3-D tomosynthesis images were obtained and synthetic 2-D images were generated. CAD analysis was submitted and interpreted. COMPARISON: Comparison to multiple prior studies sequentially, with oldest reviewed study dated 08/10. BREAST PARENCHYMAL COMPOSITION: . Dense: The breasts are extremely dense, which lowers the sensitivit y of mammography. FINDINGS: There is no evidence of suspicious mass, calcification, or architectural distortion to sugg est malignancy in either breast. There has been no suspicious interval change. IMPRESSION: 1. No mammographic evidence of malignancy. 2. Recommend routine screening mammography in one year. BI-RADS Category 1: Negative Reviewed, dictated and finalized at location B.
== END 2024-08-20 14:09 | disposition home or self-care (01) ==
LOC: CHSIMG 14:10
PROVIDERS: PCP Family Medicine
DX: Z12.31 Encounter for screening mammogram for malignant neoplasm of breast (principal)
CPT/HCPCS: 77063; 77067

== ENCOUNTER 2024-12-20 08:06 | Emergency (ER) | payer BC, SELFPAY ==
--- OUTSIDE RECORDS SUMMARY | 2024-12-20 08:11 | XMS_ITS | Referral Summary ---
Author Organization [facility] Address [address] [place] [address] Care Team Providers Care Meat Manager Name Role Phone Unavailable Primary Care Provider Unavailabl e Source Comments [facility],non-owned Affiliates and Associated Physician Practices is amultiple site organization consisting of ambulatory clinics and hospital sitesin [place], [place], [place] and [place]. This disclosure is being madepursuant to the Care Everywhere program and may not contain all information available regarding this patient. Last updated 18.[facility] Social History Tobacco Use Types Packs/Day Years Used Date Smoking Tobacco: Never Assessed Sex and Gender Information Value Date Recorded Sex Assigned at Not on file Gender Identity Not on file Sexual Orientation Not on file Last Filed Vital Signs Vital Sign Reading Time Taken Comments Blood Pressure 117/79 04/27/2013 10:39 AM CDT Pulse 64 04/27/2013 10:39 AM CDT Temperature 37.6 C (99.7 F) 04/27/2013 10:39 AM CDT Respiratory Rate 16 04/27/2013 10:3 9 AM CDT Oxygen Saturation - - Inhaled Oxygen Concentration - - Weight 76.1 kg (167 lb 12.8 oz) 013 10:39 AM CDT Height 180.3 cm (5' 11 ) 04/27/2013 10: 39 AM CDT Body Mass Index 23.4 04/27/2013 10:39 AM CDT Plan of Treatment Not on file
--- OUTSIDE RECORDS SUMMARY | 2024-12-20 08:11 | XMS_ITS | Referral Summary ---
Author Organization [facility] Address [address] [place] [id number] Care Team Providers Care Reformatory Attendant Name Role Phone Pedro Chow MD Primary Care Provider [phone] Gail Hendrickson Unavailable Unavailable Encounters Date Type Department Care Team Description 12/09/[address] [facility] Gastroenterology at [address] [place] [address] Delfina Joyner LPN 12/08/2024 6:55 AM JOB COACH - 12/08/2024 11:59 PM JOB COACH Hospital Encounter [facility] Radiology [facility] [address] [place] [address] Liver hemangioma Discharge Disposition: Discharge to home or self care 11/30/2024 7:00 AM JOB COACH Therapy [facility] - [place] [address] [place] [address] Vivi Peralta, PT Other lack of coordination (Primary Dx); Dyspareunia in female; Constipation, unspecified constipation type; Fecal urgency 11/01/[address] [facility] Gastroenterology at [address] [place] [address] Travis Davidson MA 11/01/[address] [facility] Gastroenterology at [address] [place] [phone] Amy Goss MD 10/28/[address] [facility] Gastroenterology at [address] [place] [address] Amy Goss MD Liver hemangioma (Primary Dx) 10/28/2024 12:42 PM JOB COACH Anesthesia Event [address] [address] Peng Figueroa MD 10/28/2024 12:30 PM JOB COACH - 10/28/2024 1:00 PM JOB COACH Surgery [address] [address] Amy Goss MD COLONOSCOPY 10/28/2024 11:17 AM JOB COACH - 10/28/2024 2:03 PM JOB COACH Hospital Encounter [address] [address] Amy Goss MD Family history of colon cancer; Encounter for screening colonoscopy; Voice hoarseness Discharge Disposition: Discharge to home or self care 10/19/2024 7:00 AM JOB COACH Therapy [facility] Physical Therapy [facility] [place] [address] Vivi Peralta, PT Other lack of coordination (Primary Dx); Dyspareunia in female; Constipation, unspecified constipation type; Fecal urgency 10/05/2024 7:00 AM JOB COACH Therapy [facility] [place] [address] Vivi Peralta, PT Other lack of coordination (Primary Dx); Dyspareunia in female; Constipation, unspecified constipation type; Fecal urgency 09/21/2024 Plan of Care Documentation [facility] [place] [address] 09/21/2024 10:45 AM JOB COACH Therapy [facility] Physical [facility] [place] [address] Vivi Peralta, PT Other lack of coordination (Primary Dx); Dyspareunia in female; Constipation, unspecified constipation type; Fecal urgency from Last 3 Months Allergies No known active allergies Medications vitamin B complex capsule 11/14/19 24 Active melatonin 10 mg tablet Take 1 tablet (10 mg total) by mouth daily Active Lactobacillus acidophilus (Acidophilus) capsule Take 1 capsule by mouth every morning Active clonazePAM (KlonoPIN) 0.5 mg tabletIndicatio ns:Sleep Disorders Take 2 and a half tabs at bedtime (1.25 mg). If needed (and no side effects) you can increase to 3 tabs (1.5 mg) at bedtime. 90 tablet 5 07/16/20 24 Active triamcinolone (KENALOG) 0.1 % ointment Apply topically 2 (two) times a day 30 g 1 07/30/20 24 Active estradioL (ESTRACE) 0.01 % (0.1 mg/gram) vaginal cream Insert 0.5 g nightly into vagina Friday// Friday, then weekly as needed. 42.5 g 2 07/30/20 24 Active ezetimibe (ZETIA) 10 mg tablet TAKE ONE TABLET BY MOUTH DAILY 90 tablet 1 12/01/19 25 Active ezetimibe (ZETIA) 10 mg tablet TAKE ONE TABLET BY MOUTH DAILY 90 tablet 1 05/10/20 24 025 Discontinued Active Problems Problem Noted Date Diagnosed Date Multiple thyroid nodules 07/05/2024 Assessment & Plan (07/05/2024 5:01 PM CDT): Stable. Following with ENT. Dyskinesia of esophagus 05/11/2024 Thyroid disorder 05/11/2024 Mixed hyperlipidemia 02/03/2024 Assessment & Plan (07/05/2024 5:02 PM CDT): Has improved with Zetia. Will continue. Lipid panel with next set of labs. Assessment & Plan (02/03/2024 1:05 PM CDT): Improved with ezetimibe. Will continue. Keep up the excellent lifestyle. Annual physical exam 02/03/2024 Assessment & Plan (02/03/2024 10:27 AM CDT): In regard to health maintenance, Colonoscopy due for repeat. Referral placed. Mammogram ordered Shingrix vaccine recommended Eat a healthy diet: focus on lean meats and proteins, more fruits, vegetables and whole grains and low in sugars and fats. Limit red meat and avoid processed meat. Maintain a healthy weight; avoid being overweight. Aim for a normal body mass index (BMI) of 18.5-24.9. Help learning to eat healthier, we can set up appointment with skein inspector/playroom attendant. Have an active lifestyle, strive for 30 minutes of moderate exercise 5 times a week and strength or resistance training at least twice a week. Use broad-spectrum (UVA+UVB) sunscreen with SPF 30 or greater, is water resistant, limit time spent in the sun (10 am-4pm), wear hat, wear UV protective clothing, wear sunglasses. Never use a tanning bed. Skin that was irradiated may be more sensitive over your lifetime. Do not smoke or chew tobacco; participate in a smoking cessation program. Limit alcohol intake, 1 drink per day for a woman and 2 drinks per day for a man. Colon cancer screening 02/03/2024 Assessment & Plan (02/03/2024 1:05 PM CDT): Referral to GI for screening colonoscopy placed. She is due this year. Encounter for screening mamm ogram for malignant neoplasm of breast 02/03/2024 Assessment & Plan (02/03/2024 1:05 PM CDT): Mammogram ordered. Will plan accordingly once results received. Hot flashes 02/03/2024 Assessment & Plan (02/03/2024 1:06 PM CDT): Can try black cohosh. She would also like referral to gynecology for well-woman exam. She is status post hysterectomy. Referral placed. Will monitor response. Family history of colon cancer 02/03/2024 Encounter for screening colonoscopy 02/03/2024 Metatarsal fracture 01/23/2024 Laryngeal spasm 11/13/2022 Assessment & Plan (11/13/2022 3:18 PM JOB COACH): Pepcid 40 mg at bedtime for at least 2 months Call if no improvement for modified barium swallow Consider GI referral Avoid ear cleaning techniques Avoid water to ears Use dry washcloth in the morning to remove wetness, changing pillow case Neosporin or Aquaphor ointment to outer ear when it flares up for at least one week LPR discussed and handout provided Mass of right thigh 05/03/2022 Closed fracture of lower end of right radius wit h nonunion 04/22/2022 Overview (04/22/2022): Added automatically from request for surgery [id number] BMI 23.0-23.9, adult 02/07/2022 Assessment & Plan (02/15/2022 1:14 PM CDT): Discussed healthy diet and importance of regular physical activity. Voice hoarseness 02/07/2022 Assessment & Plan (07/05/2024 5:01 PM CDT): She is following with ENT. Will also have follow-up with GI. Intolerant of the famotidine as it is causing diarrhea. Will proceed with EGD and monitor diet. Assessment & Plan (02/15/2022 1:14 PM CDT): Will trial PPI, check labs and incomplete imaging as ordered. Nodule of neck 02/07/2022 Assessment & Plan (03/26/2022 2:33 PM CDT): Restart the Pepcid AC for 1-2 weeks Avoid spicy foods 64 ounces of caffeine free and soda free fluid daily Voice rest when possible for the next 2-[address] Neck - call with results Assessment & Plan (02/15/2022 1:13 PM CDT): Will check ultrasound of palpable area of concern today. Patient denies any difficulty swallowing, stridor or shortness of breath. Given referral today for ENT evaluation. Hemangioma of liver 07/06/2020 Assessment & Plan (07/06/2020 2:11 PM CDT): Patient had liver lesion proven to be hemangioma on typical MRI imaging findings. The size is small 2.2 cm. No follow-up is needed. In the rare occasion patient have rapid increase in size or the size become more than 10 cm then at that point surgical evaluation will be needed. Finding discussed with the patient. Patient will call our office for follow-up if any symptoms develop. Hydroureteronephrosis 01/28/2020 Overview (01/28/2020): Added automatically from request for surgery [id number] Gross hematuria 04/21/2019 Facial pain 07/21/2018 Mononucleosis syndrome 12/09/2012 REM sleep behavior disorder 05/25/2012 GERD (gastroesophageal reflux disease) Resolved Problems Problem Noted Date Diagnosed Date Resolved Date Cough in adult 01/23/2024 01/23/2024 Upper respiratory infection 01/23/2024 01/23/2024 UTI symptoms 01/23/2024 01/23/2024 Encounter for screening for lipid disorder 02/07/2022 05/05/2023 Assessment & Plan (02/15/2022 1:14 PM CDT): Results for orders placed or performed in visit on 02/07/22 POCT lipid panel Result Value Ref Range Cholesterol, POC 278 mg/dL HDL, POC 78 mg/dL Triglycerides, POC 268 mg/dL LDL, Direct, POC 146 mg/dL Chol/HDL Ratio, POC 3.6 Non-HDL Cholesterol, POC 200 mg/dL Cholesterol Total, POC 278 mg/dL Reviewed lipids and discussed diet and exercise recommendations. Liver lesion 02/13/2020 07/06/2020 Assessment & Plan (02/13/2020 12:09 PM CDT): Possibly hemangioma like noted the and her previous CT scan with contrast in 2012. The increase in size is somewhat concerning. Will get MRI of the liver for definite diagnosis. Follow-up in the office after the MRI. Immunizations Name Administration Dates Next Due Influenza, Unspecified 02/03/2024(Deferr ed: Patient Refused),08/05/2023(Deferred: Patient Refused),11/21/2022(Deferred: Patient Refused),07/11/2022(Deferred: Patient Refused),02/07/2022(Deferred: Patient Refused),01/31/2021(Deferred: Patient Refused),11/10/2019(Deferred: Patient Refused) Td, Not Adsorbed 06/12/1999 Td, adsorbed 06/12/1999,06/12/1999 Yellow Fever 05/05/2013,05/05/2013 Social History Tobacco Use Types Packs/Day Years Used Date Smoking Tobacco: Never Cigarettes Smokeless Tobacco: Never Tobacco Cessation:Counseling Given: Not Answered Alcohol Use Standard Drinks/Week Comments No 0 (1 standard drink = 0.6 oz pur e alcohol) AUDIT-C Answer Date Recorded Q1: How often do you have a drink containing alc ohol? Monthly or less 10/28/2024 Q2: How many drinks containi ng alcohol do you have on a typical day when you are drinking? 1 or 2 10/28/2024 Q3: How often do you have si x or more drinks on one occasion? Never 10/28/2024 PHQ-2 Answer Date Recorded PHQ-2 Total Score (If total score is 3 or more points, staff should administer the PHQ-9) 1 07/30/2024 Personal Safety Answer Date Recorded Have you ever been in or are you currently in a harmful physical or emotional relationship or is someone making you feel afraid or unsafe? 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 Not on file Not on file Last Filed Vital Signs Vital Sign Reading Time Taken Comments Blood Pressure 122/74 10/28/2024 1:49 PM JOB COACH Pulse 68 10/28/2024 1:49 PM JOB COACH Temperature 36.6 C (97.9 F) 10/28/2024 1:49 PM JOB COACH Respiratory Rate 16 10/28/2024 1:49 PM JOB COACH Oxygen Saturation 100% 10/28/2024 1:49 PM JOB COACH Inhaled Oxygen Concentration - - Weight 75.3 kg (166 lb) 10/28/2024 11:35 AM JOB COACH Height 180.3 cm (5' 11 ) 10/28/2024 11:35 AM JOB COACH Body Mass Index 23.15 10/28/2024 11:35 AM JOB COACH Plan of Treatment Not on file Medical Devices Implanted Type Area Accounting Specialist Device Identifier Shelf Expiration Date Model / Serial / Lot [employer] 3 Hole Anatomic Graft Window Radius Right Wrist Volar Narrow [id number] - [id number] Implanted:Qty: 1 on 04/23/2022 by Isamar Reeves MD at [facility] Right: Wrist [employer] AR-[id number]- [id number] / / [employer] Low Profile Screws 3.5mm 14mm Self Tap Solid Hexalobe Lock Ar-8935l-14 - [id number] Implanted:Qty: 1 on 04/23/2022 by Isamar Reeves MD at [facility] Right: Wrist [employer] AR-8935L-14 / / [employer] Screw Kreulock Compression Titanium 2.4x22mm [id number] - [id number] Implanted:Qty: 3 on 04/23/2022 by Isamar Reeves MD at [facility] Right: Wrist [employer] AR-8724VCL- 22 / / [employer] Screw Kreulock Compression Titanium 2.4x18mm [id number] - [id number] Implanted:Qty: 1 on 04/23/2022 by Isamar Reeves MD at [facility] Right: Wrist [employer] AR-8724VCL- 18 / / [employer] Screw Kreulock Compression Titanium 2.4x20mm [id number] - [id number] Implanted:Qty: 2 on 04/23/2022 by Isamar Reeves MD at [facility] Right: Wrist [employer] AR-8724VCL- 20 / / [employer] Low Profile Screws 3.5mm 16mm Self Tap Solid Hexalobe Lock Ar-8935l-16 - [id number] Implanted:Qty: 1 on 04/23/2022 by Isamar Reeves MD at [facility] Right: Wrist [employer] AR-8935L-16 / / [employer] Low Profile Screws 3.5mm 14mm Self Tap Solid Hexalobe Lock Ar-8935l-14 - [id number] Implanted:Qty: 1 on 04/23/2022 by Isamar Reeves MD at [facility] Right: Wrist [employer] AR-8935L-14 / / Explanted Type Area Accounting Specialist Device Identifier Shelf Expiration Date Model / Serial / Lot [employer] Jay 180-223 Contour 6fr 26cm Large Inner Lumen Low Profile Bladder Mian Taper Latex Free - [id number] Implanted:Qty: 1 on 02/01/2020 by Davie Rodriguez MD at [facility] Explanted:Qty: 1 on 02/03/2020 Left: Ureter [employer] Jay 08/25/2022 [id number] / / [id number] Procedures Procedure Name Priority Date/Time Associated Diagnosis Comments MRI ABDOMEN LIVER W WO CONTRAST Schedule Routine, Read Routine (OP Routine) 12/08/2024 8:33 AM JOB COACH Liver hemangioma H. PYLORI UREASE SCREEN (JAMES TEST) STAT 10/28/2024 1:30 PM JOB COACH ESOPHAGOGASTRODUODENOSCOPY BIOPSY 10/28/2024 12:39 PM JOB COACH Family history of colon cancer Encounter for screening colonoscopy Voice hoarseness COLONOSCOPY 10/28/2024 12:39 PM JOB COACH Family history of colon cancer Encounter for screening colonoscopy Voice hoarseness EGD 10/28/2024 11:20 AM JOB COACH COLONOSCOPY 10/28/2024 11:19 AM JOB COACH SURGICAL PATHOLOGY STAT 10/28/2024 10:25 AM JOB COACH Family history of colon cancer Encounter for screening colonoscopy Voice hoarseness DIAGNOSTIC MAMMOGRAM BILATER AL W EDER Schedule Routine, Read Routine (OP Routine) 08/20/2024 from Last 3 Months or Most Recently Relevant to Health Maintenance Results * MRI Abdomen Liver W WO Contrast (12/08/2024 8:33 AM JOB COACH) Anatomical Region Laterality Modality Body N/A Magnetic Resonan ce 12/08/2024 11:1 0 AM JOB COACH Impressions 12/08/2024 12:48 PM JOB COACH Unchanged to mildly increased size of a benign hepatic hemangioma. Dictated by: Peng Waller MD The radiology attending physician has personally reviewed this study, and had reviewed and/or edited this written report and agrees with it. Electronically signed by: Dalton [place] M.D. Narrative 12/08/2024 12:48 PM JOB COACH EXAMINATION: MAGNETIC RESONANCE IMAGING OF THE ABDOMEN WITH AND WITHOUT CONTRAST HISTORY: Hemangioma follow-up TECHNIQUE: Magnetic resonance imaging of the abdomen was performed prior to and following the uneventful administration of intravenous Gadolinium contrast. Protocol: Liver Contrast: gadoterate 14 mL COMPARISON: 03/02/2020 FINDINGS: Liver: No significant fat or iron deposition - Bile ducts: Nondilated - Focal liver lesions: Slight increase in a benign cavernous hemangioma in hepatic segment 7 measuring 2.5 cm, previously 2.3 cm (series 24, image 15). Simple hepatic cyst. No suspicious liver lesion. - Vasculature: Hepatic and portal veins are patent Gallbladder: Normal Pancreas: Normal Spleen: Normal Adrenals: Normal Kidneys: Bilateral simple renal cysts without hydronephrosis. Other Findings: Lung bases are clear. Imaged bowel is normal in caliber. No suspicious marrow replacing lesion Procedure Note Dalton Heredia MD - 12/08/2024 EXAMINATION: MAGNETIC RESONANCE IMAGING OF THE ABDOMEN WITH AND WITHOUT CONTRAST HISTORY: Hemangioma follow-up TECHNIQUE: Magnetic resonance imaging of the abdomen was performed prior to and following the uneventful administration of intravenous Gadolinium contrast. Protocol: Liver Contrast: gadoterate 14 mL COMPARISON: 03/02/2020 FINDINGS: Liver: No significant fat or iron deposition - Bile ducts: Nondilated - Focal liver lesions: Slight increase in a benign cavernous hemangioma in hepatic segment 7 measuring 2.5 cm, previously 2.3 cm (series 24, image 15). Simple hepatic cyst. No suspicious liver lesion. - Vasculature: Hepatic and portal veins are patent Gallbladder: Normal Pancreas: Normal Spleen: Normal Adrenals: Normal Kidneys: Bilateral simple renal cysts without hydronephrosis. Other Findings: Lung bases are clear. Imaged bowel is normal in caliber. No suspicious marrow replacing lesion IMPRESSION: Unchanged to mildly increased size of a benign hepatic hemangioma. Dictated by: Peng Waller MD The radiology attending physician has personally reviewed this study, and had reviewed and/or edited this written report and agrees with it. Electronically signed by: Dalton [place] M.D. Amy Goss MD IMG MRI PROCEDURES Final R esult * H. pylori urease screen (JAMES test) Tissue (10/28/2024 1:30 PM JOB COACH) H. pylori, rapid (JAMES) Positive Negative Tissue 10/28/2024 1:30 PM JOB COACH 10/28/2024 4:13 PM JOB COACH Amy Goss MD LAB MICROBIOLOGY - GENERAL ORDERABLES Final Result [facility] Department [place] [address] * EGD (10/28/2024 11:20 AM JOB COACH) Anatomical Region Laterality Modality Other Narrative Procedure Note Amy Goss MD - 10/28/2024 11:20 AM CST [facility] Patient Name: Nayeli Barreto Procedure Date: 10/28/2024 11:20AM Date of : 1965 Admit Type: Outpatient Age: 59 Gender: Female Attending MD: Amy Goss M.D. Room: [facility] ENDOSCOPY ROOM 1 Note Status: Finalized Patient Profile: This is a 59 year old female. Patient hascomplaints feeling a lump in the throat. She was seen and evaluated by ENT. She was started on Prilosec for possible acid reflux with no help her benefit. EGDfor evaluation. No typical heartburn no typicaldysphagia symptoms. Procedure: Upper GI endoscopy Indications: Dysphagia, Globus sensation Referring MD: Pedro Chow M.D. Providers: Amy Goss M.D. Impression: - Normal examined duodenum. - Normal stomach. Biopsied for CLOtest. - Normal esophagus and GE junction. Biopsied. Recommendation: - Continue present medications. Follow up pathology report. Medicines: Monitored Anesthesia Care Complications: No immediate complications. Estimated Blood Loss: Estimated blood loss: none. Procedure: Pre-Anesthesia Assessment: - Prior to the procedure, a History and Physicalwas performed, and patient medications and allergieswere reviewed. The patient's tolerance of previous anesthesia was also reviewed. The risks andbenefits of the procedure and the sedation options and risks were discussed with the patient. All questions were answered, and informed consent was obtained. Prior Anticoagulants: The patient has taken noanticoagulant or antiplatelet agents. ASA Grade Assessment: Per anesthesia note and evaluation. After reviewing the risks and benefits, the patient was deemed in satisfactory condition to undergo the procedure. The benefits, risks, and alternatives to theprocedure and sedation were discussed and informed consentwas obtained. The scope was passed under direct vision. The Endoscope GIF-H190 [id number] was introduced through the mouth, and advanced to the second partof duodenum. The upper GI endoscopy was accomplished without difficulty. The patient tolerated the procedure well. Findings: The examined duodenum was normal. Mucosal pattern was normal. The entire examined stomach was normal. Biopsies were taken with acold forceps for Helicobacter pylori testing using CLOtest. Retroflexion stomach in the gastric fundus and cardia appeared normal. The GE junction was normal. The examined esophagus was normal.Biopsies were taken with a cold forceps for histology. Electronically signed by Amy Goss M.D. Amy Goss M.D. 10/28/2024 1:26:48 PM Number of Addenda: 0 Note Initiated On: 10/28/2024 11:20 AM Procedure Code(s): --- Professional --- 65942, Esophagogastroduodenoscopy, flexible, transoral; with biopsy, single or multiple Diagnosis Code(s): --- Professional --- R13.10, Dysphagia, unspecified F45.8, Other somatoform disorders CPT copyright 2020 [employer]. All rights reserved. The codes documented in this report are preliminary and upon chair post machine operator reviewmay be revised to meet current compliance requirements. Recognized by the [place] [employer] for promoting quality in endoscopy Amy Goss MD ENDOSCOPY PROCEDURES Final Result * Colonoscopy (10/28/2024 11:19 AM JOB COACH) Anatomical Region Laterality Modality Other Narrative Procedure Note Amy Goss MD - 10/28/2024 11:19 AM CST [facility] Patient Name: Nayeli Barreto Procedure Date: 10/28/2024 11:19AM Date of : 1965 Admit Type: Outpatient Age: 59 Gender: Female Attending MD: Amy Goss M.D. Room: [facility] ENDOSCOPY ROOM 1 Note Status: Finalized Patient Profile: This is a 59 year old female. No family history of colon cancer. Noted recent change in the shape ofthe stool as noted more thin. No blood in the stool. Procedure: Colonoscopy Indications: Screening for colorectal malignant neoplasm, Last colonoscopy: July 2014 Referring MD: Pedro Chow M.D. Providers: Amy Goss M.D. Impression: - The entire examined colon is normal. - Internal hemorrhoids. - No specimens collected. Recommendation: - Repeat colonoscopy in 10 years for screening purposes. Medicines: Monitored Anesthesia Care Complications: No immediate complications. Estimated Blood Loss: Estimated blood loss: none. Procedure: Pre-Anesthesia Assessment: - Prior to the procedure, a History and Physicalwas performed, and patient medications and allergieswere reviewed. The patient's tolerance of previous anesthesia was also reviewed. The risks andbenefits of the procedure and the sedation options and risks were discussed with the patient. All questions were answered, and informed consent was obtained. Prior Anticoagulants: The patient has taken noanticoagulant or antiplatelet agents. ASA Grade Assessment: Per anesthesia note and evaluation. After reviewing the risks and benefits, the patient was deemed in satisfactory condition to undergo the procedure. The benefits, risks and alternatives of theprocedure and sedation were discussed and informed consentwas obtained. All questions were answered. Please referto the signed informed consent document in the medical record. The bowel preparation used was Miralax via split dose instruction. The bowel preparation usedwas bisacodyl tablets via split dose instruction. The scope was passed under direct vision. The Pediatric Colonoscope PCF-H190L [id number] was introducedthrough the anus and advanced to the the cecum, identifiedby appendiceal orifice and ileocecal valve. Thequality of the bowel preparation was good. Bowel prep was administered using a split dose. Findings: The perianal and digital rectal examinations were normal. The cecum appeared normal. The colon (entire examined portion) appeared normal. No polyps and no mass lesions noted. No inflammatory changes noted. Internal hemorrhoids were found during retroflexion. The hemorrhoids were small. Electronically signed by Amy Goss M.D. Amy Goss M.D. 10/28/2024 1:29:54 PM Number of Addenda: 0 Note Initiated On: 10/28/2024 11:19 AM Procedure Code(s): --- Professional --- 57312, Colonoscopy, flexible; diagnostic, including collection of specimen(s) by brushing or washing, when performed (separateprocedure) Diagnosis Code(s): --- Professional --- Z12.11, Encounter for screening for malignant neoplasm of colon K64.8, Other hemorrhoids CPT copyright 2020 [employer]. All rights reserved. The codes documented in this report are preliminary and upon chair post machine operator reviewmay be revised to meet current compliance requirements. Recognized by the [employer] for promoting quality in endoscopy us Amy Goss MD ENDOSCOPY PROCEDURES Final Result * Surgical pathology (10/28/2024 10:25 AM JOB COACH) Tissue (Esophageal biopsy) 10/28/2024 1:10 PM JOB COACH Narrative PATHOLOGY [facility] ([place] - 11/01/2024 11:22 AM JOB COACH EPIC results best viewed via link to PDF [facility] Department of Pathology [address] [place] [address] Note to Patients: This report may contain a detailed description of human tissue sent by a health care provider to the laboratory for pathologic evaluation. The content of this report is essential for diagnosis and may provide important critical findings. This information may be unfamiliar to patients to review without a medical professional present. It is advised that the patient review this report in the presence of a health care provider who can answer questions and explain the details. Final Report Patient Name: NAYELI BARRETO Address: [address] [place], [place] [id number]- Gender: F : 1965 (Age: 59) Service: Gastro Location: [facility] Hospital #: [id number] Patient Type: [facility] Taken: 10/28/2024 Received: 10/29/2024 Accessioned: 10/29/2024 Reported: 11/01/2024 Physician(s):Dr. Amy Goss M.D. Diagnosis: Esophagus, biopsy: - Fragments of benign squamous epithelium. Andrés Pond M.D. Report Electronically Reviewed and Signed Out By Andrés Pond M.D. 11/01/2024 11:22:10 Specimen(s) Received: A: Esophageal Biopsy Microscopic Description: Sections show fragments of benign squamous epithelium. No significant inflammatory infiltrate is seen. No fungal elements or viral cytopathic effect is seen. There is no evidence of dysplasia. No glandular mucosa is present. Clinical History: Family history of colon cancer. Screening colonoscopy. EGD. Gross Description: The specimen is submitted in a single formalin filled container labeled NAYELI BARRETO and esophageal biopsy . It is 5 fragments of thomas tissue measuring 1 mm. All in one cassette. Chad Ferreira R.N., P.A./Arsalan Humphrey M.D. REPORT IMAGES AND SCANNED DOCUMENTS, IF INCLUDED, ONLY VIEWABLE IN PDF VERSION OF REPORT The performance characteristics of some immunohistochemical stains, fluorescence in-situ hybridization tests and immunophenotyping by flow cytometry cited in this report (if any) were determined by the Surgical Pathology Department at [facility] as part of an ongoing aerospace quality engineer program and in compliance with federally mandated regulations drawn from the Clinical Laboratory Improvement Act of 1988 (CLIA '88). Some of these tests rely on the use of analyte specific reagents and are subject to specific labeling requirements by the US Food and Drug Administration. Such diagnostic tests may only be performed in a facility that is certified by the Department of Health and Human Services as a high complexity laboratory under CLIA '88. The FDA has determined that such clearance or approval is not necessary. This test is used for clinical purposes. It should not be regarded as investigational or for research. Nevertheless, federal rules concerning the medical use of analyte specific reagents require that the following disclaimer be attached to the report: This test was developed and its performance characteristics determined by the Surgical Pathology Department [facility]. It has not been cleared or approved by the U. S. Food and Drug Administration. Note for decalcified specimens: This assay has not been validated on decalcified tissues. Results should be interpreted with caution given the possibility of false negativity on decalcified specimens Amy Goss MD LAB PATHOLOGY ORDERABLES F inal Result PATHOLOGY [facility] ([place]) [address] [place] [address] * Diagnostic Mammogram Bilateral W Eder (08/20/2024) Anatomical Region Laterality Modality Breast Bilateral Mammography 08/20/2024 Historical Provider IMG MAMMO PROCEDURES Ronit l Result from Last 3 Months or Most Recently Relevant to Health Maintenance Insurance [employer] [facility] [employer] [place] [employer] [place] [employer] [place] Sub[place] Plan / Payer (Ef fective 2017-) Name:Nayeli Barreto Relation to Subscriber:Spouse Name:BarretoAlan daigleerin Gallegos Date of :1965 (Home) Address: [address] [place] [address] Payer ID:[id number] (NAIC) Type:BC OTHER Address: [address] [place] [id number] Advance Directives For more information, please contact: [phone] * Full Code (Latest Code Status on File) Date Activated Date Inactivated Comments 10/28/2024 11:28 AM 10/28/2024 6:08 PM * Full Code Date Activated Date Inactivated Comments 10/28/2024 11:28 AM 10/28/2024 11:28 AM * Full Code Date Activated Date Inactivated Comments 02/05/2020 11:03 AM 02/05/2020 7:16 PM Care Teams Reformatory Attendant Relationship Specialty Start Date End Date Pedro Chow MD [address] [place] [address] PCP - General Family Medicine 12/02/19 Gail Hendrickson COTA Host/Hostess Ground Occupational Therapy 07/11/22
--- OUTSIDE RECORDS SUMMARY | 2024-12-20 08:11 | XMS_ITS | Clinical Summary ---
Author Organization [facility] [employer] Address [address] [place] [address] Care Team Providers Care Stiff Leg Operator Name Role Phone Unavailable Primary Care Provider Unavailabl e Source Comments [facility] [employer],non-owned Affiliates and Associated Physician Practices is amultiple site organization consisting of ambulatory clinics and hospital sitesin [place], [place], [place] and [place]. This disclosure is being madepursuant to the Care Everywhere program and may not contain all information available regarding this patient. Last updated 18.[facility] [employer] Social History Tobacco Use Types Packs/Day Years [...] 04/27/2013 10:39 AM CDT Plan of Treatment Health Maintenance Due Date Last Done Comments COLOGUARD (AGES 45-75) - COL ON CA SCREENING 1965 COLON MONITORING 1965 COLONOSCOPY - COLON CA SCREENING 1964 CT COLONOGRAPHY - COLON CA SCREENING 1965 Colorectal Cancer Screening 1965 FIT - COLON CA SCREENING 1965 FLEX SIG - COLON CA SCREENING 1965 LIPID TESTING 1965 MAMMOGRAM 1965 PAP SMEAR 1964 HIV SCREENING 1979 HEPATITIS C SCREENING 10/20/1982 DTAP/TDAP/TD VACCINES (1 - Tdap) 1983 PNEUMOCOCCAL VACCINE 50+ (1 of 1 - PCV) 2014 ZOSTER VACCINE (1 of 2) 2014 COVID-19 VACCINE ( - 2023-2 5 season) 2024 INFLUENZA VACCINE (#1) 2024 DEPRESSION SCREENING 11/10/2024 Respiratory Syncytial Virus (RSV) Vaccine Pt: or over 60 yrs (1 - 1-dose 75+ series) 2039 HEPATITIS B VACCINE Aged Out No longe r eligible based on patient's age to complete this topic HIB VACCINE Aged Out No longer eligi ble based on patient's age to complete this topic HPV VACCINE Aged Out No longer eligi ble based on patient's age to complete this topic MENINGOCOCCAL (Group B) VACCINE Aged Out No longer eligible based on patient's age to complete this topic MENINGOCOCCAL VACCINE Aged Out No branden fiona eligible based on patient's age to complete this topic PNEUMOCOCCAL VACCINE Aged Out No long er eligible based on patient's age to complete this topic
--- OUTSIDE RECORDS SUMMARY | 2024-12-20 08:11 | XMS_ITS | Clinical Summary ---
Author Organization [facility] Address [address] [place] [address] Care Team Providers Care Secondary Special Education Teacher Name Role Phone Pedro Chow MD Primary Care Provider [phone] Gail Hendrickson Unavailable Unavailable Allergies No known active allergies Medications vitamin [...] healthier, we can set up appointment with green marketing analyst/geography professor. Have an active lifestyle, strive for 30 [...] 11/13/2022 Assessment & Plan (11/13/2022 3:18 PM PER DIEM PHYSICAL THERAPIST ASSISTANT): Pepcid 40 mg at bedtime for at [...] (04/22/2022): Added automatically from request for surgery [id number] BMI 23.0-23.9, adult 02/07/2022 Assessment & Plan [...] (01/28/2020): Added automatically from request for surgery [id number] Gross hematuria 04/21/2019 Facial pain 07/21/2018 Mononucleosis [...] Follow-up in the office after the MRI. Encounters Date Type Department Care Team Description 12/09/2024 Telephone [facility] Gastroenterology at [address] [place] [address] Delfina Joyner LPN 12/08/2024 6:55 AM PER DIEM PHYSICAL THERAPIST ASSISTANT - 12/08/2024 11:59 PM PER DIEM PHYSICAL THERAPIST ASSISTANT Hospital Encounter [facility] ([facility]) [address] [place] [address] Liver hemangioma Discharge Disposition: Discharge to home or self care 11/30/2024 7:00 AM PER DIEM PHYSICAL THERAPIST ASSISTANT Therapy [facility] Physical Therapy - Michelle [address] [place] [address] Vivi Peralta, PT Other lack of coordination (Primary Dx); Dyspareunia in female; Constipation, unspecified constipation type; Fecal urgency 11/01/2024 Telephone [facility] Gastroenterology at [address] [place] [address] Travis Davidson MA 11/01/2024 Telephone [facility] Gastroenterology at [address] [place] [address] Amy Goss MD 10/28/2024 12:42 PM PER DIEM PHYSICAL THERAPIST ASSISTANT Anesthesia Event [address] [address] Peng Figueroa MD 10/28/2024 12:30 PM PER DIEM PHYSICAL THERAPIST ASSISTANT - 10/28/2024 1:00 PM PER DIEM PHYSICAL THERAPIST ASSISTANT Surgery [address] [address] Amy Goss MD COLONOSCOPY 10/28/2024 11:17 AM PER DIEM PHYSICAL THERAPIST ASSISTANT - 10/28/2024 2:03 PM PER DIEM PHYSICAL THERAPIST ASSISTANT Hospital Encounter [facility] [address] [place] [address] Amy Goss MD Family history of colon cancer; Encounter for screening colonoscopy; Voice hoarseness Discharge Disposition: Discharge to home or self care 10/28/2024 Orders Only [facility] Gastroenterology at [place] [address] [facility] [address] [place] [address] Amy Goss MD Liver hemangioma (Primary Dx) 10/19/2024 7:00 AM PER DIEM PHYSICAL THERAPIST ASSISTANT Therapy [facility] Physical Therapy [facility] [place] [address] Vivi Peralta, PT Other lack of coordination (Primary Dx); Dyspareunia in female; Constipation, unspecified constipation type; Fecal urgency 10/05/2024 7:00 AM PER DIEM PHYSICAL THERAPIST ASSISTANT Therapy [facility] Physical Therapy [facility] [place] [address] Vivi Peralta, PT Other lack of coordination (Primary Dx); Dyspareunia in female; Constipation, unspecified constipation type; Fecal urgency 09/21/2024 10:45 AM PER DIEM PHYSICAL THERAPIST ASSISTANT Therapy [facility] Physical Therapy [facility] [place] [address] Vivi Peralta, PT Other lack of coordination (Primary Dx); Dyspareunia in female; Constipation, unspecified constipation type; Fecal urgency 09/21/2024 Plan of Care Documentation [facility] Physical [facility] [place] [address] from Last 3 Months Immunizations Name Administration Dates Next Due Influenza, Unspecified 02/03/2024(Deferr ed: Patient Refused),08/05/2023(Deferred: Patient Refused),11/21/2022(Deferred: Patient Refused),07/11/2022(Deferred: Patient Refused),02/07/2022(Deferred: Patient Refused),01/31/2021(Deferred: Patient Refused),11/10/2019(Deferred: Patient Refused) Td, Not Adsorbed 06/12/1999 Td, adsorbed 06/12/1999,06/12/1999 Yellow Fever 05/05/2013,05/05/2013 Surgical History Surgery Date Site/Laterality Comments HYSTERECTOMY Hysterectomy UTERINE SUSPENSION URETEROSCOPY pt. stated, she had one 4 days ago on 02/01/20 FRACTURE SURGERY TUBAL LIGATION COLONOSCOPY 07/11/2014 - 08/09/2014 Medical History Medical History Date Comments REM sleep behavior disorder REM sleep behavior disorder - (Added by TW Conv) Menopause 2018 Angina pectoris (HCC) Palpitations I feel like I h ave butterflies in my chest Hematuria PONV (postoperative nausea a nd vomiting) Liver lesion GERD (gastroesophageal reflux disease) Covid Beginning of 2021 UTI symptoms 01/23/2024 Cough in adult 01/23/2024 History of foot fracture 10/2024 R Thyroid disorder 05/11/2024 Dyskinesia of esophagus 05/11/2024 Family History Medical History Relation Name Comments Cancer Father Lam PROSTATE Clotting disorder Father Harnett Hypertension Father Lam Other Father Lam pt fell and had a brain bleed and in June 2023 Prostate cancer Father Harnett Diabetes Maternal Grandmother Geneva Alzheimer's disease Mother Mom Breast cancer Mother Mom Cancer Mother Mom Hypertension Mother Mom Rashes / Skin problems Mother Mom Cancer Other 1 Family history of Cancer; Hypertension Other 2 Family history of Hypertension; Thyroid disease Sister Relation Name Status Comments Father Lam (Age 87) Maternal Grandmother [place] Mother Mom Other 1 Other 2 Sister Social History Tobacco Use Types Packs/Day Years [...] on file Legal Sex Female 8:21 AM PER DIEM PHYSICAL THERAPIST ASSISTANT Gender Identity Not on file Sexual Orientation Straight 01/05/2020 1: 57 PM PER DIEM PHYSICAL THERAPIST ASSISTANT 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 Not on file Not on file Not on file Obstetrics History Para Term AB IAB SAB Ectopic Multiple Livin g Live Births 3 3 1 2 1 1 Date Outcome GA Total Labor Labor/2nd/3rd Weight Sex Type Anes PTL Mariluz A1 A5 Name Clin 10/13 Term 40w 0d M Vaginal Living 09/26 33w 0d M Vaginal 03/11 36w 0d M Last Filed Vital Signs Vital Sign Reading Time Taken Comments Blood Pressure 122/74 10/28/2024 1:49 PM PER DIEM PHYSICAL THERAPIST ASSISTANT Pulse 68 10/28/2024 1:49 PM PER DIEM PHYSICAL THERAPIST ASSISTANT Temperature 36.6 C (97.9 F) 10/28/2024 1:49 PM PER DIEM PHYSICAL THERAPIST ASSISTANT Respiratory Rate 16 10/28/2024 1:49 PM PER DIEM PHYSICAL THERAPIST ASSISTANT Oxygen Saturation 100% 10/28/2024 1:49 PM PER DIEM PHYSICAL THERAPIST ASSISTANT Inhaled Oxygen Concentration - - Weight 75.3 kg (166 lb) 10/28/2024 11:35 AM PER DIEM PHYSICAL THERAPIST ASSISTANT Height 180.3 cm (5' 11 ) 10/28/2024 11:35 AM PER DIEM PHYSICAL THERAPIST ASSISTANT Body Mass Index 23.15 10/28/2024 11:35 AM PER DIEM PHYSICAL THERAPIST ASSISTANT Plan of Treatment Health Maintenance Due Date Last Done Comments Hepatitis C Screening 1965 Hepatitis B Screening 1982 DTaP/Tdap/Td Vaccine (1 - Tdap) 06/13/1999 06/12/1999, 06/12/1999, 06/12/1999 Zoster Vaccine (1 of 2) 2014 Covid-19 Vaccine ( season) 2024 10/12/2021, 03/27/2021, 03/02/2021 Influenza Vaccine (#1) 2024 Depression Screening 07/30/2025 07/30/2024, 02/03/2024, 08/05/2023, Additional history exists Regular Well Visit/Exam 18-64 07/30/2025 07/30/2024, 02/03/2024, 11/21/2022 Breast Cancer Screening-Mammogram 08/20/2025 08/20/2024, 04/28/2023, 02/25/2022, Additional history exists Colon Cancer Screening-Colonoscopy 10/28/2034 10/28/2024, 08/02/2014, 08/02/2014 Colon Cancer Screening-CT Colonography Discontinued 10/28/2024, 08/02/2014, 08/02/2014 Colon Cancer Screening-DNA Stool Discontinued 10/28/2024, 08/02/2014, 08/02/2014 Colon Cancer Screening-FIT Discontinued 10/28, 08/02/2014, 08/02/2014 Colon Cancer Screening-Sigmoidoscopy Discontinued 10/28/2024, 08/02/2014, 08/02/2014 Pneumococcal vaccine <65 Aged Out No longer eligible based on patient's age to complete this topic Medical Devices Implanted Type Area Commercial Appraiser Device Identifier Shelf Expiration Date Model / Serial / Lot [employer] 3 Hole Anatomic Graft Window Radius Right Wrist Volar Narrow [id number] - [id number] Implanted:Qty: 1 on 04/23/2022 by Isamar Reeves MD at [facility] Right: Wrist [employer] AR-[id number]- 03 / / [employer] Low Profile Screws 3.5mm 14mm Self Tap Solid Hexalobe Lock Ar-8935l-14 - [id number] Implanted:Qty: 1 on 04/23/2022 by Isamar Reeves MD at [facility] Right: Wrist [employer] AR-8935L-14 / / [employer] Screw Kreulock Compression Titanium 2.4x22mm [id number] - [id number] Implanted:Qty: 3 on 04/23/2022 by Isamar Reeves MD at [facility] Right: Wrist [employer] AR-8724VCL- 22 / / [employer] Screw Kreulock Compression Titanium 2.4x18mm [id number] - [id number] Implanted:Qty: 1 on 04/23/2022 by Isamar Reeves MD at [facility] Right: Wrist [employer] AR-8724VCL- 18 / / [employer] Screw Kreulock Compression Titanium 2.4x20mm [id number] - [id number] Implanted:Qty: 2 on 04/23/2022 by Isamar Reeves MD at [facility] Right: Wrist [employer] AR-8724VCL- 20 / / [employer] Low Profile Screws 3.5mm 16mm Self Tap Solid Hexalobe Lock Ar-8935l-16 - [id number] Implanted:Qty: 1 on 04/23/2022 by Isamar Reeves MD at [facility] Right: Wrist [employer] AR-8935L-16 / / [employer] Low Profile Screws 3.5mm 14mm Self Tap Solid Hexalobe Lock Ar-8935l-14 - [id number] Implanted:Qty: 1 on 04/23/2022 by Isamar Reeves MD at [facility] Right: Wrist [employer] AR-8935L-14 / / Explanted Type Area Commercial Appraiser Device Identifier Shelf Expiration Date Model / Serial / Lot [employer] Jay 180-223 Contour 6fr 26cm Large Inner Lumen Low Profile Bladder Mian Taper Latex Free - [id number] Implanted:Qty: 1 on 02/01/2020 by Davie Rodriguez MD at [facility] Explanted:Qty: 1 on 02/03/2020 Left: Ureter [employer] Jay 08/25/2022 180-223 / / [id number] Procedures Procedure Name Priority Date/Time Associated Diagnosis Comments MRI ABDOMEN LIVER W WO CONTRAST Schedule Routine, Read Routine (OP Routine) 12/08/2024 8:33 AM PER DIEM PHYSICAL THERAPIST ASSISTANT Liver hemangioma H. PYLORI UREASE SCREEN (JAMES TEST) STAT 10/28/2024 1:30 PM PER DIEM PHYSICAL THERAPIST ASSISTANT ESOPHAGOGASTRODUODENOSCOPY BIOPSY 10/28/2024 12:39 PM PER DIEM PHYSICAL THERAPIST ASSISTANT Family history of colon cancer Encounter for screening colonoscopy Voice hoarseness COLONOSCOPY 10/28/2024 12:39 PM PER DIEM PHYSICAL THERAPIST ASSISTANT Family history of colon cancer Encounter for screening colonoscopy Voice hoarseness EGD 10/28/2024 11:20 AM PER DIEM PHYSICAL THERAPIST ASSISTANT COLONOSCOPY 10/28/2024 11:19 AM PER DIEM PHYSICAL THERAPIST ASSISTANT SURGICAL PATHOLOGY STAT 10/28/2024 10:25 AM PER DIEM PHYSICAL THERAPIST ASSISTANT Family history of colon cancer Encounter for screening colonoscopy Voice hoarseness DIAGNOSTIC MAMMOGRAM BILATER AL W EDER Schedule Routine, Read Routine (OP Routine) 08/20/2024 from Last 3 Months or Most Recently Relevant to Health Maintenance Results * MRI Abdomen Liver W WO Contrast (12/08/2024 8:33 AM PER DIEM PHYSICAL THERAPIST ASSISTANT) Anatomical Region Laterality Modality Body N/A Magnetic Resonan ce 12/08/2024 11:1 0 AM PER DIEM PHYSICAL THERAPIST ASSISTANT Impressions 12/08/2024 12:48 PM PER DIEM PHYSICAL THERAPIST ASSISTANT Unchanged to mildly increased size of a benign hepatic hemangioma. Dictated by: Peng Waller MD The radiology attending physician has personally reviewed this study, and had reviewed and/or edited this written report and agrees with it. Electronically signed by: Dalton Heredia M.D. Narrative 12/08/2024 12:48 PM PER DIEM PHYSICAL THERAPIST ASSISTANT EXAMINATION: MAGNETIC RESONANCE IMAGING OF THE ABDOMEN [...] screen (JAMES test) Tissue (10/28/2024 1:30 PM PER DIEM PHYSICAL THERAPIST ASSISTANT) H. pylori, rapid (JAMES) Positive Negative Tissue 10/28/2024 1:30 PM PER DIEM PHYSICAL THERAPIST ASSISTANT 10/28/2024 4:13 PM PER DIEM PHYSICAL THERAPIST ASSISTANT Amy Goss MD LAB MICROBIOLOGY - GENERAL ORDERABLES Final Result [facility] [place] [address] [facility] Department of Laboratories [place], [place] [id number] * EGD (10/28/2024 11:20 AM PER DIEM PHYSICAL THERAPIST ASSISTANT) Anatomical Region Laterality Modality Other Narrative Procedure Note Amy Goss MD - 10/28/2024 11:20 AM CST [facility] Patient Name: Nayeli Barreto Procedure Date: 10/28/2024 11:20AM Date of : 1965 Admit Type: Outpatient Age: 59 Gender: Female Attending MD: Amy Goss M.D. Room: [facility] ENDOSCOPY ROOM 1 Note Status: Finalized Patient [...] passed under direct vision. The Endoscope GIF-H190 [id number] was introduced through the mouth, and advanced [...] 11:20 AM Procedure Code(s): --- Professional --- 89310, Esophagogastroduodenoscopy, flexible, transoral; with biopsy, single or multiple Diagnosis Code(s): --- Professional --- R13.10, Dysphagia, unspecified F45.8, Other somatoform disorders CPT copyright 2020 [employer]. All rights reserved. The codes documented in this report are preliminary and upon death surveys coder reviewmay be revised to meet current compliance requirements. Recognized by the [employer] for promoting quality in endoscopy Amy Goss MD ENDOSCOPY PROCEDURES Final Result * Colonoscopy (10/28/2024 11:19 AM PER DIEM PHYSICAL THERAPIST ASSISTANT) Anatomical Region Laterality Modality Other Narrative Procedure Note Amy Goss MD - 10/28/2024 11:[address] [facility] Patient Name: Nayeli Barreto Procedure Date: 10/28/2024 11:19AM Date of : 1965 Admit Type: Outpatient Age: 59 Gender: Female Attending MD: Amy Goss M.D. Room: [facility] ENDOSCOPY ROOM 1 Note Status: Finalized Patient [...] under direct vision. The Pediatric Colonoscope [id number]-H190L [id number] was introducedthrough the anus and advanced to [...] 11:19 AM Procedure Code(s): --- Professional --- 87025, Colonoscopy, flexible; diagnostic, including collection of specimen(s) by brushing or washing, when performed (separateprocedure) Diagnosis Code(s): --- Professional --- Z12.11, Encounter for screening for malignant neoplasm of colon K64.8, Other hemorrhoids CPT copyright 2020 [employer]. All rights reserved. The codes documented in this report are preliminary and upon death surveys coder reviewmay be revised to meet current compliance requirements. Recognized by the [employer] for promoting quality in endoscopy Amy Goss MD ENDOSCOPY PROCEDURES Final Result * Surgical pathology (10/28/2024 10:25 AM PER DIEM PHYSICAL THERAPIST ASSISTANT) Tissue (Esophageal biopsy) 10/28/2024 1:10 PM PER DIEM PHYSICAL THERAPIST ASSISTANT Narrative PATHOLOGY [facility] ([place]) - 11/01/2024 11:22 AM PER DIEM PHYSICAL THERAPIST ASSISTANT EPIC results best viewed via link to PDF [facility] Department of Pathology [address] [place] [address] Note to Patients: This report may contain [...] Final Report Patient Name: NAYELI BARRETO Address: [address] [place] [address]- Gender: F : 1965 (Age: 59) Service: Gastro Location: [facility] Hospital #: [id number] Patient Type: [facility] Taken: 10/28/2024 Received: 10/29/2024 Accessioned: 10/29/2024 Reported: [...] determined by the Surgical Pathology Department at [facility] as part of an ongoing director of quality improvement program and in compliance with federally mandated [...] characteristics determined by the Surgical Pathology Department [facility]. It has not been cleared or approved by the U. S. Food and Drug Administration. Note for decalcified specimens: This assay has not been validated on decalcified tissues. Results should be interpreted with caution given the possibility of false negativity on decalcified specimens Amy Goss MD LAB PATHOLOGY ORDERABLES F inal Result PATHOLOGY [facility] ([place] [address] [place], [place] [id number] * Diagnostic Mammogram Bilateral W Eder (08/20/2024) Anatomical Region Laterality Modality Breast Bilateral Mammography 08/20/2024 Historical Provider IMG MAMMO PROCEDURES Ronit l Result from Last 3 Months or Most Recently Relevant to Health Maintenance Insurance BLUE ACCESS MA BLUE ACCESS MA BLUE ACCESS MA BLUE ACCESS MA Advance Directives For more information, please contact: [phone] * Full Code (Latest Code Status on File) Date Activated Date Inactivated Comments 10/28/2024 11:28 AM 10/28/2024 6:08 PM * Full Code Date Activated Date Inactivated Comments 10/28/2024 11:28 AM 10/28/2024 11:28 AM * Full Code Date Activated Date Inactivated Comments 02/05/2020 11:03 AM 02/05/2020 7:16 PM Care Teams Secondary Special Education Teacher Relationship Specialty Start Date End Date [place] [address] PCP - General Family Medicine 12/02/19 Gail Hendrickson COTA Special Warfare Operator Occupational Therapy 07/11/22
--- OUTSIDE RECORDS SUMMARY | 2024-12-20 08:11 | XMS_ITS | Clinical Summary ---
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 Role Phone Unavailable Primary Care Provider Unavailabl e Social History Tobacco Use Types Packs/Day Years Used Date Smoking Tobacco: Never Assessed Comments Unknown Sex and Gender Information Value Date Recorded Sex Assigned at Not on file Legal Sex Female 10:24 PM CDT Gender Identity Not on file Sexual Orientation Not on file Plan of Treatment Health Maintenance Due Date Last Done Comments Cervical Cancer Screening Pa p Smear (Age 30 to 64) Every 3 Years 1965 Colorectal Cancer Screening Colonoscopy (10 Years) 1965 Annual Physical 1967 Hepatitis C 1982 DTaP, Tdap and Td Vaccines ( 1 - Tdap) 1983 Cervical Cancer Screening Pa p with HPV Testing (Age 30 to 64) Every 5 Years 1994 Cervical Cancer Screening with HPV 1994 Mammogram Screening 2004 Zoster Vaccines (1 of 2) 2014 COVID-19 Vaccine (2023-2 5 season) 2024 Influenza Adult (#1) 2024 RSV Immunization or 60+ Years (1 - 1-dose 75+ series) 2039 Meningococcal B Vaccine Aged Out No l onger eligible based on patient's age to complete this topic Meningococcal Vaccine Aged Out No branden fiona eligible based on patient's age to complete this topic Pneumococcal Vaccine: Pediat rics (0 to 5 Years) and At-Risk Patients (6 to 64 Years) Aged Out No longer eligible b ased on patient's age to complete this topic RSV Immunizations Under 20 Months Aged Out No longer eligible based on patient's age to complete this topic
--- OUTSIDE RECORDS SUMMARY | 2024-12-20 08:11 | XMS_ITS | Patient Health Summary ---
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 This disclosure is being madepursuant to the Care Everywhere program and may not contain all information available regarding this patient. Last updated 18.[facility] Social History Tobacco Use Types Packs/Day Years [...] Mass Index 23.4 04/27/2013 10:39 AM CDT Procedures * MRI ABDOMEN WWO CONTRAST(Performed 04/01/2013) * CREATININE BLOOD - POCT (IP) [facility](Performed 11/10/1998) Results * MRI ABDOMEN WWO CONTRAST (04/01/2013 10:16 AM CDT) Anatomical Region Laterality Modality Abdomen Other Impressions 04/01/2013 5:22 PM CDT Impression: 1. T2 bright hepatic segment 7 lesion with peripheral nodular enhancement and late phase filling, consistent with hemangioma. 2. Small left renal cyst. Report dictated by Matthew Henderson MD. This report was approved by Matthew Henderson M.D. on 04/01/2013 12:[address] Arnie Bernstein M.D. have personally reviewed and interpreted this examination/study. This report was electronically signed by Arnie PRESTON M.D. on 04/01/2013 5:22 PM . Narrative 04/01/2013 5:22 PM CDT MRI abdomen with and without contrast History: Liver lesion seen on recent CT. Comparison: CT dated 02/13/2013 Technique: Multisequence multiplanar Contrast: 10 ml Eovist, intravenous Findings: The lung bases are clear. There is a 8 mm T2 bright lesion in hepatic segment 7 which demonstrates peripheral nodular enhancement on the arterial phase with further filling on the venous phase. This lesion appears hypointense on the hepatobiliary phase. No other enhancing lesions are seen. There is no ascites. The liver has normal signal intensity. The intrahepatic and extrahepatic ducts are not dilated. The portal vein and branches are patent. The gallbladder is normal without evidence of wall thickening, pericholecystic fluid or stones. The pancreas has normal signal intensity without evidence of peripancreatic fluid. The spleen and adrenal glands are normal. A small T2 bright cyst is noted in the left kidney. The kidneys are otherwise normal, there is no hydronephrosis. There are no abnormally dilated loops of bowel. The vascular structures are normal. The imaged cortical and marrow signal is normal. Procedure Note Cecilia Preston MD - 02/08/2018 MRI abdomen with and without contrast History: Liver lesion seen on recent CT. Comparison: CT dated 02/13/2013 Technique: Multisequence multiplanar Contrast: 10 ml Eovist, intravenous Findings: The lung bases are clear. There is a 8 mm T2 bright lesion in hepatic segment 7 which demonstratesperipheral nodular enhancement on the arterial phase with further fillingon the venous phase. This lesion appears hypointense on the hepatobiliaryphase. No other enhancing lesions are seen. There is no ascites. The liver has normal signal intensity. Theintrahepatic and extrahepatic ducts are not dilated. The portal vein andbranches are patent. The gallbladder is normal without evidence of wall thickening,pericholecystic fluid or stones. The pancreas has normal signal intensitywithout evidence of peripancreatic fluid. The spleen and adrenal glandsare normal. A small T2 bright cyst is noted in the left kidney. The kidneys areotherwise normal, there is no hydronephrosis. There are no abnormally dilated loops of bowel. The vascular structuresare normal. The imaged cortical and marrow signal is normal. IMPRESSION Impression: 1. T2 bright hepatic segment 7 lesion with peripheral nodular enhancementand late phase filling, consistent with hemangioma. 2. Small left renal cyst. Report dictated by Matthew Henderson MD. This report was approved by Matthew Henderson M.D. on 04/01/2013 12:19 PM. I, Dr. Arnie PRESTON M.D. have personally reviewed and interpreted thisexamination/study. This report was electronically signed by Arnie PRESTON M.D. on04/01/2013 5:22 PM . 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
--- OUTSIDE RECORDS SUMMARY | 2024-12-20 08:11 | XMS_ITS | Continuity of Care Document ---
Author Organization [facility] Address [id number] [place] [address] [address] [place] [address] Phone Care Team Providers Care Quality Control Assistant Name Role Phone Alessandra CAT MD, Andrés Unavailable Unavailab le Allergies, Adverse Reactions, Alerts Substance Reaction Status Criticality No Known allergies Medications Medication Instructions Dosage Effective Dates (start - stop) Status Comments Fish Oil 100 mg-160 mg-1,000 mg capsule - Active Acidophilus capsule - Active Procedures Procedure Date OFFICE/OUTPATIENT VISIT, [facility] TORIC IOL REVISION OF IRIS REVISION OF IRIS Not medically necessary svc OFFICE/OUTPATIENT VISIT, [facility] SPECIAL EYE EXAM, INITIAL SPECIAL EYE EXAM, INITIAL Advance Directives Directive Yes / No Effective Date File Name No Information Encounters Encounter Description Practice Location Reason(s) For Visit Diagnoses Date Provider Providers Copied on Encounter [facility], [address] [place] [address], [place], [place], [id number], tel:[phone] OPH CONSULT AUGUSTO MENEZES No Information 3 Alessandra Bowen. [address] [facility], [address], [place], [place], [address] , [place]. tel:[phone] Referring Provider: Ebenezer Warren, [address], [place], [place], [address]. tel:[phone] OFFICE/OUTPA TIENT VISIT, EST [facility], [address] [address], [place], [place], [address], tel:[phone] OPH CONSULT AUGUSTO MENEZES eyes doing well, without complaint. (chief complaint) Other states following surgery of eye and adnexa 3 Magen Castro. [address], [address], [place], [place], [address] , [place]. tel:[phone] Referring Provider: Ebenezer Warren, [address], [place], [place], [address]. tel:[phone] [facility], [address] [place] [address], [id number], tel:[phone] [address] [place] [address] [facility] [place] No Information 2 Magen Castro. [address], [address], [place], [place], [address] , [place]. tel:[phone] Referring Provider: Matthew Marroquin, [address], [place], [place], [address]. tel:[phone] [facility], [address] [place] [address], [place], [place], [address], [place] tel:[phone] [address] [place] [address] [facility] [place] No Information 2 Magen Castro. [address], [address], [place], [place], [address] , [place]. tel:[phone] Referring Provider: Matthew Marroquin, [address], [place], [place], [address]. tel:[phone] [facility], [address] [place] [address] [address], [place], [place], [address], [place] tel:[phone] OPH CONSULT AUGUSTO MENEZES No Information 2 Magen Castro. [address], [address], [place], [place], [address] , [place]. tel:[phone] Referring Provider: Matthew Marroquin, [address], [place], [place], [address]. tel:[phone] OFFICE/OUTPA TIENT VISIT, NEW [facility], [address], [place], [place], [address], [place] tel:[phone] OPH CONSULT AUGUSTO MENEZES ICL Evaluation (chief complaint) Keratoconjuncti vitis sicca, not specified as sjogren'sKerato conjunctivitis sicca, not specified as sjogren's 2 Magen Castro. [address], [address], [place], [place], [address] , [place]. tel:[phone] Referring Provider: Matthew Us MD P, [address], [place], [place], [address]. tel:[phone] Family History Family Member Type Diagnosis Age At Onset Grandmother Problem (finding) Diabetes mellitus Grandmother (m) Problem (finding) Glaucoma Father Problem (finding) Glaucoma Payers Payer name Insurance type Covered constitution party ID Authoriza tion(s) [facility] [id number] Social History Type Description Quantity Date Captured Comments Sex Female Smoking Status No Information Chief Complaint And Reason For Visit No Information Plan Of Treatment Date Type Action Status No Information History Of Present Illness Encounter Date Complaint History Of Prese nt Illness No Information Instructions Date Instruction Additional Infor brad S/P Refractive Surge ry OU - S/P ICL, OUPt doing well. Related to S/P Refractive Surgery - RTO after surgery. Related to Keratoconjunctivitis sicca, not specified as sjogr Keratoconjunctivitis sicca, not specified as sjogr - Pt elects ICL, will call to schedule. Right eye dominant. Related to Keratoconjunctivitis sicca, not specified as sjogr Assessments Type Assessment Date No Information
--- NOTE | 2024-12-20 08:13 | ED.URI ---
HPI - URI/Sore Throat General Chief Complaint: Upper Respiratory Infection Stated Complaint: throat Time Seen by Provider: 12/20/24 08:14 History of Present Illness HPI Narrative: 59-year-old female presented for complaint of sore throat for 2 days. developed a red rash to the chest yesterday. Taking Ph[place]ia-[place] for symptoms. Endorses painful glands and cough from nasal drainage. Has not taken anything for pain. Denies difficulty maintaining secretions. Denies shortness of breath, wheezing nausea vomiting, diarrhea, fevers or chills. Related Data Home Medications ?Medication ?Instructions ?Recorded ?Confirmed ?Last Taken ?Type clonazepam 1 mg tablet (Klonopin) 1.5 mg PO HS 08/02/20 05/11/24 Unknown History melatonin 10 mg tablet 10 mg PO HS 06/19/22 05/11/24 Unknown History Adult Probiotic See Rx Instructions .Route .COMPLEX 11/14/23 05/11/24 Unknown History Vitamin B See Rx Instructions .Route .COMPLEX 11/14/23 05/11/24 Unknown History ezetimibe 10 mg tablet 10 mg PO DAILY 11/14/23 05/11/24 Unknown History tacrolimus 0.1 % topical ointment See Rx Instructions .Route .COMPLEX 11/14/23 05/11/24 Unknown History Allergies Allergy/AdvReac Type Severity Reaction Status Date / Time COLONSCOPY ANESTHESIA Allergy Severe BRADYCARDIA Uncoded 05/11/24 09:46 PRODUCT? Review of Systems Review of Systems: CONSTITUTIONAL: Denies body aches, fever, chills, or sweats. EYES: Denies visual changes, redness, or discharge. ENT: Reports sore rhinorrhea, denies otalgia. CARDIOVASCULAR: Denies chest pain, palpitations, or edema. RESPIRATORY: Denies dyspnea. GASTROINTESTINAL: Denies abdominal pain, nausea, vomiting, or diarrhea. SKIN: Denies rash, itching, or wounds. MUSCULOSKELETAL: Denies back pain, joint pain, or myalgia. NEUROLOGIC: Denies headache PMFSH Past Medical History Medical History Vaginal delivery x 3 Raynauds syndrome REM sleep behavior disorder Trigeminal neuralgia Surgical History Surgical History History of renal stent History of tonsillectomy History of tubal ligation History of hysterectomy Family History Family History Father Family history of hypercholesterolemia Hypertension Malignant neoplasm of prostate Mother Hypertension Family history of malignant neoplasm of breast in first degree relative Grandparent Carcinoma of colon Other Family history of malignant neoplasm of breast Social History Social History Smoking status: Never smoker Alcohol intake: never Substance use: never 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 EYES: conjunctivae clear ENT: Mucous membranes moist. TM pearly zavaleta with normal light reflex bilaterally; no tragal tenderness. Oropharynx not erythematous without lesions. Tonsils absent. No drooling, no hoarseness, no trismus, uvula midline. No tripod positioning, hot potato voice, or soft palate swelling. NECK: Supple. No lymphadenopathy CHEST: Clear to auscultation, breath sounds equal. No respiratory distress, speaks in full sentences. HEART: Regular rate and rhythm. No murmur heard. SKIN: Warm, dry, mildly erythematous papular rash noted to the anterior upper chest NEURO: Alert and oriented x3. Course Course Emergency Course: Patient is aware of diagnosis, understands and agrees to treatment plan. Anticipatory guidance given. Patient agrees to follow-up as directed and is aware of reasons to seek care at the emergency department. Portions of this record may have been created with voice recognition software Level of Care: Express Care Visit Vital Signs Vital signs: Vital Signs Temperature 98.2 F 12/20/24 08:16 Pulse Rate 64 12/20/24 08:16 Respiratory Rate 16 12/20/24 08:16 Blood Pressure 133/67 12/20/24 08:16 Pulse Oximetry 100 12/20/24 08:16 Oxygen Delivery Room Air 12/20/24 08:16 Temperature 98.2 F 12/20/24 08:16 Pulse Rate 64 12/20/24 08:16 Respiratory Rate 16 12/20/24 08:16 Blood Pressure 133/67 12/20/24 08:16 Pulse Oximetry 100 12/20/24 08:16 Oxygen Delivery Room Air 12/20/24 08:16 MDM - URI/Sore Throat MDM Narrative Medical decision making narrative: Neg flu, COVID, strep result reviewed with pt. states she had mono at age 39, states this feels similar and would like to be tested. Crook neg. Advise supportive treatments. Patient is appropriate for outpatient treatment and follow-up. Differential Diagnosis Differential diagnosis: Likely upper respiratory infection, viral infection and pharyngitis Lab Data Labs: Lab Results 12/20/24 12/20/24 Range/Units 08:26 08:48 POC Influenza A Ag Negative (Negative) POC Influenza B Ag Negative (Negative) POC SARS CoV-2 Ag Negative (Negative) POC Grp A Strep Screen Negative (Negative) Discharge Plan Discharge Clinical Impression: Upper respiratory infection Patient Disposition: Home, Self-Care Condition: Stable Instructions: Upper Respiratory Infection (ED) Additional Instructions: flu COVID negative Rapid strep swab was negative today You will be notified in a few days if the culture comes back positive for strep, and appropriate antibiotics will be called in at that time. if symptoms are due to a viral illness, it is not treated with antibiotics. Viral symptoms can be present for up to 10-14 days. Recommendations; Flonase spray and Zyrtec for sinus congestion Cough syrup may cause drowsiness; avoid driving or take it at night time. Tylenol every 8 hours as needed for pain/fever Soft foods, cool liquids, warm tea. Gargle with warm saltwater twice a day. Chloraseptic spray and throat lozenges. Rest and stay hydrated. --Follow up with your PCP --Go to the ER immediately if you cannot swallow your saliva, trouble breathing/wheezing, throat swelling, pain is persistent and severe Patient Language: Citizen Of [place] Prescriptions: No Action tacrolimus 0.1 % ointment See Rx Instructions .ROUTE .COMPLEX Rx Instructions: per rx instructions ezetimibe 10 mg tablet 10 mg PO DAILY Adult Probiotic See Rx Instructions .ROUTE .COMPLEX Rx Instructions: otc Vitamin B See Rx Instructions .ROUTE .COMPLEX Rx Instructions: otc melatonin 10 mg Tablet 10 mg PO HS clonazepam [Klonopin] 1 mg tablet 1.5 mg PO HS omeprazole 40 mg capsule,delayed release(DR/EC) 40 mg PO DAILY Qty: 30 3RF Rx Instructions: take 1 capsule q.a.m. on empty stomach famotidine 20 mg tablet 20 mg PO BID Qty: 60 3RF Rx Instructions: take 1 tablet b.i.d. on empty stomach Follow-up/Referrals: Harms,Pedro Isbell M.D. [Primary Care Provider] - Time of Disposition: 09:01
[2024-12-20 08:16] VITALS: BP 133/67; PULSE 64; RESP 16; TEMP 36.8; O2SAT 100
[2024-12-20 08:27] LABS: EDSTREPNEGPOS1 Negative (Negative)
[2024-12-20 08:50] LABS: EDCOVIDSCREEN Negative (Negative); EDINFLUASCREEN Negative (Negative); EDINFLUBSCREEN Negative (Negative)
[2024-12-20 09:08] LABS: EDMONONEGPOS Negative (Negative)
== END 2024-12-20 09:04 | disposition home or self-care (01) ==
PROVIDERS: Emergency Provider Nurse Practitioner Family; PCP Family Medicine
DX: J06.9 Acute upper respiratory infection, unspecified (principal); J02.9 Acute pharyngitis, unspecified; I73.00 Raynaud's syndrome without gangrene; Z20.822 Contact with and (suspected) exposure to COVID-19
CPT/HCPCS: 36416; 86308; 87081; 87426; 87804; 87880; 99213; G0463

== ENCOUNTER 2025-05-16 14:55 | Outpatient (RCR) | payer BC, SELFPAY ==
--- NOTE | 2025-05-16 16:11 | OPREHPOC ---
Outpatient Therapy Plan of Care This is a Multidisciplinary Plan of Care that may contain components documented by all disciplines (PT, OT, and ST.) PT Problem 1 PT Problem #1 Knowledge Deficit PT Goal 1 Goal / Goal Update Independent and compliant with HEP. Target Visit 2 PT Problem 2 PT Problem #2 Impaired Range of Motion PT Goal 1 Goal / Goal Update Pt to improve L shoulder functional IR to T6 to improve ability to don/doff bra. Target Visit 8 PT Problem 3 PT Problem #3 Impaired Strength PT Goal 1 Goal / Goal Update Pt to improve gross shoulder strength to 5/5 for improved dynamic stability for functional tasks. Target Visit 8 PT Problem 4 PT Problem #4 Pain PT Goal 1 Goal / Goal Update Pt to note no worse than 2/10 pain with lifting and reaching behind her back. Target Visit 8 PT Problem 5 PT Problem #5 Impaired Functional Mobility PT Goal 1 Goal / Goal Update Pt to note 20% or less perceived disability on Quick DASH. Target Visit 8
--- NOTE | 2025-05-16 16:12 | PTOPEVAL1 ---
Assessment and note entered by Jasmin Escamilla, PT Evaluation Information Assessment Status Evaluation ICD-10 Condition Codes (PT) Pain in left shoulder M25.512 Other ICD-10 Condition Codes ( M79.602 PT) Onset 05/10/25 Subjective Information Pt reports L arm pain on the anterior/lateral part of the arm in the area of the bicep. Unsure of onset or CIRO. She's been using Voltaren as needed which helps reduce pain. States she's unable to sleep on her L side due to pain and can't reach behind her back to take off her bra. Pain also occurs when trying to hold a book for a long time, and lift heavy pots/pans and lift overhead. Denies NTB down the arm. Reported Pain Level Pain Score 0: Self Report Assessment PT Clinical Summary Mrs. De La Cruz is a 59 yo female presenting to skilled PT evaluation for L arm pain. She demonstrates L shoulder weakness and impaired ability to reach behind her back, as well as positive empty/full can and infraspinatus test. In addition to these findings she also has a palpable knot in her L bicep mm belly with reproduction of pain upon palpation as well as pain with lying her L side. Signs/symptoms are consistent with rotator cuff tendonitis and associated bicep mm tightness resulting in L arm pain. She will benefit from skilled PT intervention to reduce pain, improve strength and functional use of the L arm to return to daily functional activities with less pain. Plan of Care Interventions Electrical Stimulation,Hot Pack/Cold Pack,Manual Therapy,Neuro Re-education,Patient/Caregiver Education,Therapeutic Activities,Therapeutic Exercise,Self-Care/Home Management Other Interventions TPDN PT Services Indicated Yes Treatment Frequency and 2x/week for 8 visits Duration These treatments will address the objective and functional deficits as defined above. The patient will be advanced safely and appropriately in order for the patient to progress towards his/her prior level of function. Additional exercises will be introduced and as well as a comprehensive home exercise program upon discharge, if needed, ?to ensure carryover of functional gains achieved in the clinic. This treatment plan has been reviewed and agreement upon by the patient.
--- NOTE | 2025-06-14 08:02 | OPREHPOC ---
Outpatient Therapy Plan of Care This is a Multidisciplinary Plan of Care that may contain components documented by all disciplines (PT, OT, and ST.) PT Problem 1 PT Problem #1 Knowledge Deficit PT Goal 1 Goal / Goal Update Independent and compliant with HEP. Target Visit 2 Progress Met PT Problem 2 PT Problem #2 Impaired Range of Motion PT Goal 1 Goal / Goal Update Pt to improve L shoulder functional IR to T6 to improve ability to don/doff bra. Target Visit 16 Progress Not Met PT Problem 3 PT Problem #3 Impaired Strength PT Goal 1 Goal / Goal Update Pt to improve gross shoulder strength to 5/5 for improved dynamic stability for functional tasks. Target Visit 16 PT Problem 4 PT Problem #4 Pain PT Goal 1 Goal / Goal Update Pt to note no worse than 2/10 pain with lifting and reaching behind her back. Target Visit 16 PT Problem 5 PT Problem #5 Impaired Functional Mobility PT Goal 1 Goal / Goal Update Pt to note 20% or less perceived disability on Quick DASH. Target Visit 16
--- NOTE | 2025-06-14 08:03 | PTOPREEVAL ---
Assessment and note entered by JT File, PT Evaluation Information Assessment Status Re-evaluation ICD-10 Condition Codes (PT) Pain in left shoulder M25.512 Other ICD-10 Condition Codes ( M79.602 PT) Onset 05/10/25 Subjective Information patient reports the L arm is better, but reports she still has tingling in the R foot/toes, and issues with the L arm ranging from the elbow to the L shoulder. she reports she is still unable to reach behind her lower back with the L UE. she reports the traction does seem to help. she admittedly does not do well resting the L arm, and continues to use it. Reported Pain Level Pain Score 2: Self Report Assessment PT Clinical Summary mrs. starr presents to skilled PT services for her 8th skilled PT visit. while patient reports some subjective improvement, she continues to be limited in strength of the L UE and functional reach behind her back. her signs and symptoms are indicative of a L RTC impingement. she now is also complicated by L lateral epicondylalgia from activity compensation. continued skilled PT is indicated as she has not achieved her functional or objective goals for skilled PT. Plan of Care Interventions Electrical Stimulation,Hot Pack/Cold Pack,Manual Therapy,Neuro Re-education,Patient/Caregiver Education,Therapeutic Activities,Therapeutic Exercise,Self-Care/Home Management Other Interventions TPDN PT Services Indicated Yes Treatment Frequency and continue skilled PT 2x weekly for 8 more visits Duration These treatments will address the objective and functional deficits as defined above. The patient will be advanced safely and appropriately in order for the patient to progress towards his/her prior level of function. Additional exercises will be introduced and as well as a comprehensive home exercise program upon discharge, if needed, ?to ensure carryover of functional gains achieved in the clinic. This treatment plan has been reviewed and agreement upon by the patient.
--- NOTE | 2025-07-07 07:47 | OPREHPOC ---
Outpatient Therapy Plan of Care This is a Multidisciplinary Plan of Care that may contain components documented by all disciplines (PT, OT, and ST.) PT Problem 1 PT Problem #1 Knowledge Deficit PT Goal 1 Goal / Goal Update Independent and compliant with HEP. Target Visit 2 Progress Met PT Problem 2 PT Problem #2 Impaired Range of Motion PT Goal 1 Goal / Goal Update Pt to improve L shoulder functional IR to T6 to improve ability to don/doff bra. Target Visit 16 Progress Not Met PT Problem 3 PT Problem #3 Impaired Strength PT Goal 1 Goal / Goal Update Pt to improve gross shoulder strength to 5/5 for improved dynamic stability for functional tasks. Target Visit 16 Progress Not Met PT Problem 4 PT Problem #4 Pain PT Goal 1 Goal / Goal Update Pt to note no worse than 2/10 pain with lifting and reaching behind her back. Target Visit 16 Progress Not Met PT Problem 5 PT Problem #5 Impaired Functional Mobility PT Goal 1 Goal / Goal Update Pt to note 20% or less perceived disability on Quick DASH. Target Visit 16 Progress Not Met
--- NOTE | 2025-07-07 07:47 | PTOPDC ---
Assessment and note entered by Jeaneth Canela, PT Evaluation Information Assessment Status Discharge ICD-10 Condition Codes (PT) Pain in left shoulder M25.512 Other ICD-10 Condition Codes ( M79.602 PT) Onset 05/10/25 Subjective Information Maryanne reports she continues to have pain in her left forearm and bicep muscles where she can feel knots. She is using a TENS unit at home and performing home exercises. She has an appointment with Dr. Thomson on 07/28/25. Reported Pain Level Pain Score 3: Self Report Assessment PT Clinical Summary Maryanne De La Cruz has completed 16 skilled PT services for left shoulder pain. She is reporting no pain in her shoulder but has pain in the left bicep and forearm. She is able to reach behind her back a little more now as well. She demonstrates painful and decreased shoulder IR, positive special tests consistent with rotator cuff pathology and lateral epicondylitis, tenderness at the CET and bicep, and decreased shoulder and elbow strength. She is being discharged to an independent [facility] and will follow up with an e business specialist on 07/28/25 . Plan of Care PT Services Indicated No
== END 2025-07-07 13:15 | disposition home or self-care (01) ==
LOC: CHSPT 14:55
PROVIDERS: Visit Provider Family Medicine
DX: M79.602 Pain in left arm (principal); M25.512 Pain in left shoulder
CPT/HCPCS: 97012; 97014; 97110; 97112; 97140; 97161; 97750; G0283

== ENCOUNTER 2025-08-02 12:56 | Outpatient (RCR) | payer BC, SELFPAY ==
--- NOTE | 2025-08-02 13:48 | OPREHPOC ---
Outpatient Therapy Plan of Care This is a Multidisciplinary Plan of Care that may contain components documented by all disciplines (PT, OT, and ST.) PT Problem 1 PT Problem #1 Knowledge Deficit PT Goal 1 Goal / Goal Update independent and compliant with HEP Target Visit 2 PT Problem 2 PT Problem #2 Pain PT Goal 1 Goal / Goal Update pain at worst in the L shoulder to be 3/10 or less Target Visit 4 PT Problem 3 PT Problem #3 Impaired Range of Motion PT Goal 1 Goal / Goal Update 150 degrees or better active L shoulder flex 150 degrees or better active L shoulder ABD 80 degrees or better active L shoulder ER 65 degrees or better active L shoulder IR Target Visit 4 PT Problem 4 PT Problem #4 Impaired Strength PT Goal 1 Goal / Goal Update 4+/5 overall L shoulder strength Target Visit 4 PT Problem 5 PT Problem #5 Impaired Functional Mobility PT Goal 1 Goal / Goal Update quick dash to display 10% or less functional deficits patient to manage bra and clothes without issues using the L UE patient to reach midline lumbar spine behind back with the L UE Target Visit 4
--- NOTE | 2025-08-02 13:48 | PTOPEVAL1 ---
Assessment and note entered by JT File, PT Evaluation Information Assessment Status Evaluation ICD-10 Condition Codes (PT) Pain in left shoulder M25.512 Onset 07/28/25 Subjective Information patient reports she went back to the specialist after her last bout of therapy and was told she needs to return and try another round of therapy. she did not have an injection or change in meds. she reports she has most trouble with managing her bra, reaching behind her back, and with increased use. she reports turning faucets is also really tough. she was told if this round of therapy does not work, she will return to the specialist and get an MRI. Reported Pain Level Pain Score 0: Self Report Assessment PT Clinical Summary mrs. starr presents to skilled PT for a second bout of rehab on the L shoulder. she displays decreased L shoulder rom, L shoulder weakness, and pain with activities. she is especially limited in reaching behind her back and lifting any objects away from her body. she would benefit from continued skilled PT with focus on rom alevism, strength alevism, and return to prior level functional activities without limitations. Plan of Care Interventions Electrical Stimulation,Hot Pack/Cold Pack,Manual Therapy,Neuro Re-education,Patient/Caregiver Education,Therapeutic Activities,Therapeutic Exercise PT Services Indicated Yes Treatment Frequency and 1x weekly for 4 visits Duration These treatments will address the objective and functional deficits as defined above. The patient will be advanced safely and appropriately in order for the patient to progress towards his/her prior level of function. Additional exercises will be introduced and as well as a comprehensive home exercise program upon discharge, if needed, ?to ensure carryover of functional gains achieved in the clinic. This treatment plan has been reviewed and agreement upon by the patient.
--- NOTE | 2025-08-18 10:14 | PCPTNOTE ---
patient stopped into therapy today to discuss some bruising that appeared yesterday in the back of the L arm. it is a deep redish color that is located to the posterior L arm along the middle to distal triceps mm. she was curious what to do. PT advised her it was likely fluid/inflamation from breaking some scar tissue loose in the shoulder during her last therapy session, but to contact her ortho to follow up.
--- NOTE | 2025-08-22 08:17 | OPREHPOC ---
Outpatient Therapy Plan of Care This is a Multidisciplinary Plan of Care that may contain components documented by all disciplines (PT, OT, and ST.) PT Problem 1 PT Problem #1 Knowledge Deficit PT Goal 1 Goal / Goal Update independent and compliant with HEP Target Visit 2 Progress Met PT Problem 2 PT Problem #2 Pain PT Goal 1 Goal / Goal Update pain at worst in the L shoulder to be 3/10 or less Target Visit 8 Progress Not Met PT Problem 3 PT Problem #3 Impaired Range of Motion PT Goal 1 Goal / Goal Update 150 degrees or better active L shoulder flex 150 degrees or better active L shoulder ABD 80 degrees or better active L shoulder ER 65 degrees or better active L shoulder IR Target Visit 8 Progress Not Met PT Problem 4 PT Problem #4 Impaired Strength PT Goal 1 Goal / Goal Update 4+/5 overall L shoulder strength Target Visit 8 Progress Not Met PT Problem 5 PT Problem #5 Impaired Functional Mobility PT Goal 1 Goal / Goal Update quick dash to display 10% or less functional deficits patient to manage bra and clothes without issues using the L UE patient to reach midline lumbar spine behind back with the L UE Target Visit 8 Progress Not Met
--- NOTE | 2025-08-22 08:18 | PTOPREEVAL ---
Assessment and note entered by JT File, PT Evaluation Information Assessment Status Re-evaluation ICD-10 Condition Codes (PT) Pain in left shoulder M25.512 Onset 07/28/25 Subjective Information patient reports the L shoulder continues to hurt and be tight. she is unable to reach behind her back. the bruising in the L posterior arm and reduced some since late last week. she reports she has a follow up with her PCP today. she also has some bruising to the bilateral thighs and one spot on the contralateral arm too. she reports she does not follow up with ortho until 09/27/25. Reported Pain Level Pain Score 2: Self Report Assessment PT Clinical Summary mrs. starr presents to skilled PT services for her 4th skilled PT of the L shoulder this bout. she continues to have active and passive tightness in L shoulder rom. she also presents with mm guarding and pain with passive rom to end mobility . she has not yet met rom or strength goals, and will benefit from continued skilled PT at least until her follow up with ortho. Plan of Care Interventions Electrical Stimulation,Hot Pack/Cold Pack,Manual Therapy,Neuro Re-education,Patient/Caregiver Education,Therapeutic Activities,Therapeutic Exercise PT Services Indicated Yes Treatment Frequency and continue skilled PT 1x weekly for 4 more visits Duration These treatments will address the objective and functional deficits as defined above. The patient will be advanced safely and appropriately in order for the patient to progress towards his/her prior level of function. Additional exercises will be introduced and as well as a comprehensive home exercise program upon discharge, if needed, ?to ensure carryover of functional gains achieved in the clinic. This treatment plan has been reviewed and agreement upon by the patient.
== END 2025-10-31 23:59 | disposition home or self-care (01) ==
LOC: CHSPT 12:56
PROVIDERS: Visit Provider Physician Assistant
DX: M75.02 Adhesive capsulitis of left shoulder (principal); M19.012 Primary osteoarthritis, left shoulder; M75.42 Impingement syndrome of left shoulder
CPT/HCPCS: 97014; 97110; 97140; 97161; G0283

== ENCOUNTER 2025-09-05 14:32 | Outpatient (CLI) | payer BC, SELFPAY ==
--- OUTSIDE RECORDS SUMMARY | 2013-05-17 03:33 | XMS_ITS | Continuity of Care Document ---
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 Name Role Phone Alessandra CAT MD, Andrés Unavailable Unavailab le Allergies, Adverse Reactions, Alerts Substance Reaction Status Criticality No Known allergies Medications Medication Instructions Dosage Effective Dates (start - stop) Status Comments Fish Oil 100 mg-160 mg-1,000 mg capsule - Active Acidophilus capsule - Active Procedures Procedure Date OFFICE/OUTPATIENT VISIT, [facility] TORIC IOL REVISION OF IRIS REVISION OF IRIS Not medically necessary svc OFFICE/OUTPATIENT VISIT, [facility] [place] SPECIAL EYE EXAM, INITIAL SPECIAL EYE EXAM, INITIAL Advance Directives Directive Yes / No Effective Date File Name No Information Encounters Encounter Description Practice Location Reason(s) For Visit Diagnoses Date Provider Providers Copied on Encounter [facility], [address] [place] [address], [place], [place], [id number], tel:[phone] OPH CONSULT AUGUSTO MENEZES No Information 3 Alessandra Bowen. [address], [address], [place], [place], [id number] , [place]. tel:[phone] Referring Provider: Ebenezer Warren, [address], [place], [address] . tel:[phone] OFFICE/OUTPA TIENT VISIT, [facility], [address] [place] [address] [address], [place], [place], [id number], tel:[phone] OPH CONSULT AUGUSTO MENEZES Other states following surgery of eye and adnexa 3 Magen Castro. [address], [address], [place], [place], [address] , . tel: [phone] Referring Provider: Ebenezer Warren, [address], [place], [address] . tel:[phone] [facility], [address] [place] [address], [address] [place] [address], tel:[phone] [address] [place] [address] [facility] [place] No Information 2 Magen Castro. [address], [address], [place], [place], [address] , . tel: [phone] Referring Provider: Matthew Marroquin, [address], [place], [address] . tel:[phone] [facility], [address] [place] [address], [id number], [phone] [address] [place] [address] [facility] [place] No Information 2 Magen Castro. [address], [address], [place], [place], [address] , [place]. tel:[phone] Referring Provider: Matthew Marroquin, [address], [place], [address] . tel:[phone] [facility], [address] [place] [address], [id number], tel:[phone] OPH CONSULT AUGUSTO MENEZES No Information 2 Magen Castro. [address], [place], [place], [address] , [place]. tel:[phone] Referring Provider: Matthew Marroquin, [address], [place], [address] . tel:[phone] OFFICE/OUTPA TIENT VISIT, [facility] [place] [facility], [address] [place] [address], [place], [place], [id number], [place] tel:[phone] OPH CONSULT AUGUSTO MENEZES Keratoconjunctiv itis sicca, not specified as sjogren'sKeratoc onjunctivitis sicca, not specified as sjogren's 2 Magen Castro. [address], [place], [place], [id number] , [place]. tel: [phone] Referring Provider: Matthew Us MD P, [address], [place], [address] . tel:[phone] Family History Family Member Type Diagnosis Age At Onset Grandmother Problem (finding) Diabetes mellitus Grandmother (m) Problem (finding) glaucoma Father Problem (finding) glaucoma Payers Payer name Insurance type Covered republican ID Authoriza timerlene(s) [facility] [id number] Social History Type Description Quantity Date Captured Comments Sex Female Smoking Status No Information Chief Complaint And Reason For Visit No Information Reason For Referral Reason For Referral No Information Plan Of Treatment Date Type Action Status Appointment Maryanne De La Cruz BOOKED History Of Present Illness Encounter Date Complaint History Of Prese nt Illness No Information Functional Status Date Functional Assessmen t No Information Instructions Date Instruction Additional Infor brad S/P Refractive Surge ry OU - S/P ICL, OUPt doing well. Related to S/P Refractive Surgery Keratoconjunctivitis sicca, not specified as sjogr - Pt elects ICL, will call to schedule. Right eye dominant. Related to Keratoconjunctivitis sicca, not specified as sjogr - RTO after surgery. Related to Keratoconjunctivitis sicca, not specified as sjogr Assessments Type Assessment Date No Information Patient Care Teams Name Effective Dates (start - stop) Status Members No Information
--- NOTE | ~2025-09-05 | MM_ITS ---
EXAMINATION: MM screening [facility] BI w doug HISTORY: Screening TECHNIQUE: Craniocaudal and mediolateral oblique 3-D tomosynthesis images were obtained and synthetic 2-D images were generated. CAD analysis was submitted and interpreted. COMPARISON: Comparison to multiple prior studies sequentially, with oldest reviewed study dated 12/07/2019. BREAST PARENCHYMAL COMPOSITION: Not dense: There are scattered areas of fibroglandular density. FINDINGS: There is no evidence of suspicious mass, calcification, or architectural distortion to suggest malignancy in either breast. There has been no suspicious interval change. IMPRESSION: 1. No mammographic evidence of malignancy. 2. Recommend routine screening mammography in one year. BI-RADS Category 1: Negative Reviewed, dictated and finalized at location B.
--- OUTSIDE RECORDS SUMMARY | 2025-09-05 16:16 | XMS_ITS | Clinical Summary ---
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 Name Role Phone Unavailable Primary Care Provider [...] Screening with HPV 1994 Mammogram Screening 2004 Pneumococcal Vaccine: 50+ Ye ars (1 of 1 - PCV) 2014 Zoster Vaccines (1 of 2) 2014 COVID-19 Vaccine ( - 2024-2 6 season) 2025 Influenza Adult (#1) 2025 RSV Immunization or 60+ Years (1 - 1-dose 75+ series) 2039 Hepatitis A Vaccines Aged Out No long er eligible based on patient's age to complete this topic Meningococcal B Vaccine Aged Out No l onger eligible based on patient's age to complete this topic Meningococcal Vaccine Aged Out No branden fiona eligible based on patient's age to complete this topic RSV Immunizations Under 20 Months Aged Out No longer eligible based on patient's age to complete this topic
--- OUTSIDE RECORDS SUMMARY | 2025-09-05 16:16 | XMS_ITS | Clinical Summary ---
Author Organization [facility] Address [address] [place] [address] Care Team Providers Care [employer] Name Role Phone Pedro Chow MD Primary Care Provider [phone] Gail Hendrickson Unavailable Unavailable Allergies No known active allergies Medications vitamin B complex capsule 11/14/19 24 Active melatonin 10 mg tablet Take 1 tablet (10 mg total) by mouth daily Active Lactobacillus acidophilus (Acidophilus) capsule Take 1 capsule by mouth every morning Active Xiidra 5 % dropperette 01/18/20 25 Active FLUoxetine 10 mg capsule TAKE ONE CAPSULE BY MOUTH DAILY 30 capsule 4 05/31/20 25 Active ezetimibe (ZETIA) 10 mg tablet TAKE ONE TABLET BY MOUTH DAILY 90 tablet 1 06/22/20 25 Active clonazePAM (KlonoPIN) 0.5 mg tabletIndications: Sleep Disorders Take 2 and a half tabs at bedtime (1.25 mg). If needed (and no side effects) you can increase to 3 tabs (1.5 mg) at bedtime. 90 tablet 5 08/18/20 25 Active doxycycline hyclate 100 mg capsule 12/30/19 25 025 Discontin ued(Thera py completed ) metroNIDAZOLE (METROGEL) 1 % gel 12/30/19 25 025 Discontin ued(Thera py completed ) clonazePAM (KlonoPIN) 0.5 mg tabletIndications: Sleep Disorders Take 2 and a half tabs at bedtime (1.25 mg). If needed (and no side effects) you can increase to 3 tabs (1.5 mg) at bedtime. 90 tablet 5 01/20/20 25 025 Discontin ued(Reord er) fluticasone propionate (FLONASE) 50 mcg/actuation nasal sprayIndications:g lobus sensation Administer 2 sprays into each nostril daily 1 each 2 01/21/20 25 025 Discontin ued(Thera py completed ) pantoprazole DR (PROTONIX) 40 mg EC tabletIndications: H. Pylori Take 1 tablet (40 mg total) by mouth 2 (two) times a day for 14 days 28 tablet 01/21/20 25 025 Discontin ued(Thera py completed ) bismuth subsalicylate 262 mg tablet,chewableInd ications:H. Pylori Take 2 tablets (524 mg total) by mouth 4 (four) times a day for 14 days 112 tablet 01/21/20 25 025 Discontin ued(Thera py completed ) ondansetron ODT (ZOFRAN-ODT) 4 mg disintegrating tablet Take 1 tablet (4 mg total) by mouth every 6 (six) hours as needed for nausea or vomiting 20 tablet 1 01/21/20 25 Discontin ued(Thera py completed ) Miebo, PF, 100 % drops INSTILL ONE DROP INTO BOTH EYES FOUR TIMES DAILY . BOTTLE PREPARATION IS REQUIRED. REFER TO PACKAGE INSERT FOR SPECIAL PREPARATION AND ADMIN 11/01/20 24 025 Discontin ued(Thera py completed ) Active Problems Problem Noted Date Diagnosed Date SIEGEL (dyspnea on exertion) 09/04/2025 Assessment & Plan (09/04/2025 7:35 AM CDT): MOst likely multifacotrial. WIll check BNP and monitor response. Bruising, spontaneous 09/04/2025 Assessment & Plan (09/04/2025 7:36 AM CDT): NO diffuse bruising. See aging hematoma on the left upper posterior arm and will follow response. Check for coagulation abnormaltieis and repeat CBC. No clear trauma. Reviewed ER warning s/s. Lipid screening 09/04/2025 Assessment & Plan (09/04/2025 7:36 AM CDT): As above. Prediabetes 05/10/2025 Assessment & Plan (05/10/2025 9:06 AM CDT): Fasting blood sugar level within prediabetes range. Advised to continue healthy lifestyle. No medication required. - Continue current diet and exercise regimen. - Consider referral to chef under for dietary guidance. Coccyx pain 05/10/2025 Assessment & Plan (05/10/2025 9:09 AM CDT): No acute changes. X-ray ordered. - Order x-ray of the tailbone. Left arm pain 05/10/2025 Assessment & Plan (05/10/2025 9:08 AM CDT): Discussed biceps tendonitis. Would recommend physical therapy. Reviewed repetitive motions can flare. If no improvement with physical therapy consider referral to water treatment specialist. Can continue with Voltaren p.r.n.. Neuropathy 05/10/2025 Assessment & Plan (05/10/2025 9:07 AM CDT): Neurovascularly intact. Discussed NCV/EMG. She declines today. She will monitor her feet closely. Will let us know if anything worsens. Anxiety 02/07/2025 Assessment & Plan (05/10/2025 9:05 AM CDT): Experiencing vivid dreams. Fluoxetine improves sleep quality. Discussed discontinuing but she prefers to continue. - Continue fluoxetine 10 mg oral daily. Assessment & Plan (02/07/2025 9:58 AM CDT): Will initiate fluoxetine. She was also able to speak with the counselor in our office today. Red flags reviewed. Will follow up in 2 months to monitor response. Of course return sooner for any concerns. IFG (impaired fasting glucose) 02/07/2025 Assessment & Plan (02/07/2025 9:59 AM CDT): Fasting glucose 114. Continue healthy lifestyle. Limit carbs and sugars. Will check A1c with next set of labs. Positive H. pylori test 01/20/2025 Multiple thyroid nodules 07/05/2024 Assessment & Plan (07/05/2024 5:01 PM CDT): Stable. Following with ENT. Esophageal spasm 05/11/2024 Thyroid mass 05/11/2024 Mixed hyperlipidemia 02/03/2024 Assessment & Plan (02/07/2025 9:58 AM CDT): Lipid panel looks great. Continue Zetia. Will continue to monitor. Assessment & Plan (07/05/2024 5:02 PM CDT): Has improved with Zetia. Will continue. Lipid panel with next set of labs. Assessment & Plan (02/03/2024 1:05 PM CDT): Improved with ezetimibe. Will continue. Keep up the excellent lifestyle. Annual physical exam 02/03/2024 Assessment & Plan (02/07/2025 9:58 AM CDT): Visit preventive in nature. We reviewed medications, chronic conditions, risk factors, lifestyle recommendations. Reviewed immunization recommendations. Follow-up in 2 months for follow-up on anxiety and 1 year for annual wellness. Assessment & Plan (02/03/2024 10:27 AM CDT): [...] healthier, we can set up appointment with spot worker/pool cleaner. 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 sleep behavior disorder 05/25/2012 GERD (gastroesophageal reflux disease) Resolved Problems Problem Noted Date Diagnosed Date Resolved Date Sprain of toe, great, right 02/07/2025 02/07/2025 Sprain of toe 02/07/2025 02/07/2025 Cough in adult 01/23/2024 01/23/2024 Upper respiratory [...] Encounters Date Type Department Care Team Description 09/04/2025 Results Follow-Up [facility] [address] [phone] Pedro Chow MD Protime-INR, aPTT 08/24/2025 8:05 AM CDT Lab [facility] [address] [place] [address] Bruising, spontaneous 08/23/2025 Telephone [facility] [address] [phone] Pedro Chow MD 08/22/2025 11:15 AM CDT Lab [facility] [address] [place] [address] Lipid screening; Bruising, spontaneous; SIEGEL (dyspnea on exertion) 08/22/2025 11:00 AM CDT Office Visit [facility] [address] [place] [phone] Pedro Chow MD Lipid screening (Primary Dx); Bruising, spontaneous; SIEGEL (dyspnea on exertion) 08/20/2025 10:04 AM CDT - 08/20/2025 11:59 PM CDT Hospital Encounter [facility] [address] [place] [address] Contusion of left upper extremity, initial encounter Discharge Disposition: Discharge to home or self care 08/19/2025 Orders Only [facility] [address] [phone] Pedro Chow MD Contusion of left upper extremity, initial encounter (Primary Dx) 08/19/2025 Nurse Triage [facility] [address] [phone] Pedro Chow MD 08/16/2025 7:00 AM CDT - 08/16/2025 11:59 PM CDT Hospital Encounter [facility] Nutrition and Diabetic Education 1 [facility] [address] [place] [address] Jovi, Adeline Carrasquillo RD Discharge Disposition: Discharge to home or self care 07/28/2025 10:25 AM CDT Ancillary Procedure [facility] Imaging at [address] [phone] 07/28/2025 9:30 AM CDT Office Visit [facility] [address] [place] [phone] Anita Cortes PA Adhesive capsulitis of left shoulder (Primary Dx); Arthritis of left acromioclavicular joint; Subacromial impingement of left shoulder 07/28/2025 Telephone [facility] [address] [place] [phone] Anita Cortes PA 06/13/2025 8:00 AM CDT Social Work [facility] [address] [phone] Astrid Moreau, ENAMEL FINISHER from Last 3 Months Immunizations Immunization Administration Dates Next Due Influenza, Unspecified 02/03/2024(Deferr [...] by TW Conv) Menopause 2018 Angina pectoris Palpitations I feel like I h ave butterflies in my chest Hematuria PONV (postoperative nausea a nd vomiting) Liver lesion GERD (gastroesophageal reflux disease) Covid Beginning of 2021 UTI symptoms 01/23/2024 Cough in adult 01/23/2024 History of foot fracture 10/2024 R Thyroid disorder 05/11/2024 Dyskinesia of esophagus 05/11/2024 Sprain of toe 02/07/2025 Sprain of toe, great, right 02/07/2025 Family History Medical History Relation Name Comments Cancer Father Lam PROSTATE Clotting disorder Father Lam Hypertension Father Brock[place] Other Father Lam pt fell and had a brain bleed and in June 2023 Prostate cancer Father [place] Diabetes Maternal Grandmother Geneva Alzheimer's disease Mother Mom Breast cancer Mother Mom Cancer Mother Mom Hypertension Mother Mom Rashes / Skin problems Mother Mom Cancer Other 1 Family history of Cancer; Hypertension Other 2 Family history of Hypertension; Thyroid disease Sister Relation Name Status Comments Father Lam (Age 87) Maternal Grandmother Geneva Alive Mother Mom Other 1 Other 2 Sister Social History Tobacco Use Types Packs/Day Years Used Date Smoking Tobacco: Never Smokeless Tobacco: Never Tobacco Cessation:Counseling Given: Not Answered Alcohol Use Standard Drinks/Week Comments Never 0 (1 standard drink = 0.6 oz pur e alcohol) [facility] Utilities Answer Date Recorded In the past 12 months has th e electric, gas, oil, or water company threatened to shut off services in your home? No 02/28/2025 Humiliation, Afraid, Rape, and Kick questionnair e Answer Date Recorded Within the last year, have y ou been afraid of your partner or ex-partner? No 02/28/2025 Within the last year, have y ou been humiliated or emotionally abused in other ways by your partner or ex-partner? No Within the last year, have y ou been kicked, hit, slapped, or otherwise physically hurt by your partner or ex-partner? No 02/28/2025 Within the last year, have y ou been raped or forced to have any kind of sexual activity by your partner or ex-partner? No 02/28/2025 Social Connection and Isolation Panel Answer Date Recorded In a typical week, how many times do you talk on the phone with family, friends, or neighbors? More than three times a week 02/28/2025 How often do you get togethe r with friends or relatives? More than three times a week 02/28/2025 How often do you attend chur ch or anglican services? More than 4 times per year 02/28/2025 Do you belong to any clubs o r organizations such as sikh groups, unions, fraternal or athletic groups, or school groups? Yes 02/28/2025 How often do you attend meet ings of the clubs or organizations you belong to? More than 4 times per year 02/28/2025 Are you , , di vorced, , never , or living with a partner? 02/28/2025 Overall Financial Resource Strain (CARDIA) Answe r Date Recorded How hard is it for you to pa y for the very basics like food, housing, medical care, and heating? Not hard at all 02/28/2025 PHQ-2 Answer Date Recorded PHQ-2 Total Score (If total score is 3 or more points, staff should administer the PHQ-9) 0 08/22/2025 [place] [facility] - Occupational Stress Questionnaire Answer Date Recorded Do you feel stress - tense, restless, nervous, or anxious, or unable to sleep at night because your mind is troubled all the time - these days? To some extent 02/28/2025 Exercise Vital Sign Answer Date Recorde d On average, how many days pe r week do you engage in moderate to strenuous exercise (like a brisk walk)? 4 days 02/28/2025 On average, how many minutes do you engage in exercise at this level? 40 min 02/28/2025 Hunger Vital Sign Answer Date Recorded Within the past 12 months, y ou worried that your food would run out before you got the money to buy more. Never true 02/29/20 25 Within the past 12 months, t he food you bought just didn't last and you didn't have money to get more. Never true 02/28/2025 PRAPARE - Transportation Answer Date Re corded In the past 12 months, has l ack of transportation kept you from medical appointments or from getting medications? No 02/09 In the past 12 months, has l ack of transportation kept you from meetings, work, or from getting things needed for daily living? No 02/28/2025 PHQ-9 Answer Date Recorded PHQ-9 Total Score 0 02/28/2025 Housing Stability Vital Sign Answer Ken e Recorded In the last 12 months, was t here a time when you were not able to pay the mortgage or rent on time? No 02/28/2025 In the past 12 months, how m any times have you moved where you were living? 0 02/28/2025 At any time in the past 12 m [facility], were you homeless or living in a nursing home (including now)? No 02/28/2025 AUDIT-C Answer Date Recorded Q1: How often do you have a drink containing alcohol? Never 07/28/2025 Q2: How many drinks containi ng alcohol do you have on a typical day when you are drinking? Patient does not drink Q3: How often do you have si x or more drinks on one occasion? Never 07/28/2025 Personal Safety Answer Date Recorded Have you ever been in or are you currently in a harmful physical or emotional relationship or is someone making you feel afraid or unsafe? Denies 10/28/2024 Comments No Sex and Gender Information Value Date Recorded Sex Assigned at Not on file Legal Sex Female 8:21 AM PROBATION AND PATROL AGENT Gender Identity Not on file Sexual Orientation Straight 01/05/2020 1: 57 PM PROBATION AND PATROL AGENT Occupation Industry Job Start Date Job End [...] Sign Reading Time Taken Comments Blood Pressure 110/70 08/22/2025 10:46 AM CDT Pulse 64 08/22/2025 10:46 AM CDT Temperature 36.7 C (98.1 F) 08/22/2025 10:46 AM CDT Respiratory Rate 18 08/22/2025 10:46 AM CDT Oxygen Saturation 98% 08/22/2025 10:46 AM CDT Inhaled Oxygen Concentration - - Weight 78.9 kg (174 lb) 08/22/2025 10:46 AM CDT Height 180.3 cm (5' 11) 08/22/2025 10:46 AM CDT Body Mass Index 24.27 08/22/2025 10:46 AM CDT Plan of Treatment Health Maintenance Due Date Last Done Comments Hepatitis C Screening 1965 Hepatitis B Screening 1982 DTaP/Tdap/Td Vaccine (1 - Tdap) 06/13/1999 06/12/1999, 06/12/1999, 06/12/1999 Zoster Vaccine (1 of 2) 2014 Covid-19 Vaccine ( - season) 2025 10/12/2021, 03/27/2021, 03/02/2021 Influenza Vaccine (#1) 2025 Breast Cancer Screening-Mammogram 08/20/2025 08/20/2024, 04/28/2023, 02/25/2022, Additional history exists Regular Well Visit/Exam 18-64 02/07/2026 02/07/2025, 07/30/2024, 02/03/2024, Additional history exists Depression Screening 08/22/2026 08/22/2025, 02/28/2025, 02/07/2025, Additional history exists Colon Cancer Screening-Colonoscopy 10/28/2034 10/28/2024, 08/02/2014, 08/02/2014 Colon Cancer Screening-CT Colonography Discontinued 10/28/2024, 08/02/2014, 08/02/2014 Colon Cancer Screening-DNA Stool Discontinued 10/28/2024, 08/02/2014, 08/02/2014 Colon Cancer Screening-FIT Discontinued 10/28, 08/02/2014, 08/02/2014 Colon Cancer Screening-Sigmoidoscopy Discontinued 10/28/2024, 08/02/2014, 08/02/2014 Pneumococcal vaccine <65 Aged Out No longer eligible based on patient's age to complete this topic Medical Devices Implanted Type Area Painter Chassis Device Identifier Shelf Expiration Date Model / Serial / Lot [employer] 3 Hole Anatomic Graft Window Radius Right Wrist Volar Narrow [id number] - [id number] Implanted:Qty: 1 on 04/23/2022 by Isamar Reeves MD at [facility] Right: Wrist [employer] [id number]- [id number] / / [employer] Low Profile Screws 3.5mm 14mm Self Tap Solid Hexalobe Lock Ar-[id number]-14 - [id number] Implanted:Qty: 1 on 04/23/2022 by Isamar Reeves MD at [facility] Right: Wrist [employer] AR-8935L-14 / / [employer] Screw Kreulock Compression Titanium 2.4x22mm [id number] - [id number] Implanted:Qty: 3 on 04/23/2022 by Isamar Reeves MD at [facility] Right: Wrist [employer] AR-8724VCL- 22 / / [employer] Screw Kreulock Compression Titanium 2.4x18mm [id number] - [id number] Implanted:Qty: 1 on 04/23/2022 by Isamar Reeves MD at [facility] Right: Wrist [employer] AR-8724VCL- 18 / / [employer] Screw Kreulock Compression Titanium 2.4x20mm [id number] - [id number] Implanted:Qty: 2 on 04/23/2022 by Isamar Reeves MD at [facility] Right: Wrist [employer] AR-8724VCL- 20 / / [employer] Low Profile Screws 3.5mm 16mm Self Tap Solid Hexalobe Lock Ar-[id number]-16 - [id number] Implanted:Qty: 1 on 04/23/2022 by Isamar Reeves MD at [facility] Right: Wrist [employer] AR-8935L-16 / / [employer] Low Profile Screws 3.5mm 14mm Self Tap Solid Hexalobe Lock Ar-[id number]-14 - [id number] Implanted:Qty: 1 on 04/23/2022 by Isamar Reeves MD at [facility] Right: Wrist [employer] AR-8935L-14 / / Explanted Type Area Painter Chassis Device Identifier Shelf Expiration Date Model / Serial / Lot [employer] Jay 180-223 Contour 6fr 26cm Large Inner Lumen Low Profile Bladder Mian Taper Latex Free - [id number] Implanted:Qty: 1 on 02/01/2020 by Davie Rodriguez MD at [facility] Explanted:Qty: 1 on 02/03/2020 Left: Ureter [employer] 08/25/2022 180-223 / / [id number] Procedures Procedure Name Priority Date/Time Associated Diagnosis Comments APTT Routine 08/24/2025 9:33 AM CDT PROTIME-INR Routine 08/24/2025 9:33 AM CDT Bruising, spontaneous EGFR Routine 08/22/2025 11:02 AM CDT Lipid screening DIFFERENTIAL AUTO Routine 08/22/2025 11: 02 AM CDT Lipid screening PRO B-TYPE NATRIURETIC PEPTIDE Routine 08/22/2025 11:02 AM CDT SIEGEL (dyspnea on exertion) APTT Routine 08/22/2025 11:02 AM CDT Bruising, spontaneous PROTIME-INR Routine 08/22/2025 11:02 AM CDT Bruising, spontaneous LIPID PANEL Routine 08/22/2025 11:02 AM CDT Lipid screening COMPREHENSIVE METABOLIC PANEL Routine 08/22/2025 11:02 AM CDT Lipid screening CBC WITH AUTO DIFFERENTIAL Routine 08/22/2025 11:02 AM CDT Lipid screening XR HUMERUS LEFT 2 OR MORE VIEWS Schedule Routine, Read Routine (OP Routine) 08/20/2025 10:18 AM CDT Contusion of left upper extremity, initial encounter XR ELBOW LEFT 3 OR MORE VIEWS Schedule Routine, Read Routine (OP Routine) 08/20/2025 10:18 AM CDT Contusion of left upper extremity, initial encounter XR SHOULDER LEFT 2 OR MORE VIEWS Schedule Routine, Read Routine (OP Routine) 07/28/2025 10:28 AM CDT Adhesive capsulitis of left shoulder COLONOSCOPY 10/28/2024 11:19 AM PROBATION AND PATROL AGENT DIAGNOSTIC MAMMOGRAM BILATERAL W EDER Schedule Routine, Read Routine (OP Routine) 08/20/2024 from Last 3 Months or Most Recently Relevant to Health Maintenance Results * aPTT (08/24/2025 9:33 AM CDT) aPTT 33 26 - 38 sec Comment: Interpretive Data Heparin therapeutic range: 66.0 - 100.0 seconds. Range based on correlation with therapeutic heparin activity range of 0.3 - 0.7 Units/mL. Current interpretive data was last revised on 2023. Testing performed by: [facility], [address] [place] [address], [place]., [id number] Blood 08/24/2025 9:33 AM CDT 08/24/2025 3:25 PM CDT Pedro Chow MD LAB BLOOD ORDERABLES Ronit l Result [facility] ALMAZAN [place]) [address] [facility] [place] [address] * Protime-INR (08/24/2025 9:33 AM CDT) PT 12.0 10.2 - 13.5 sec Comment:Testing performed by : [facility], [address] [place] [address], [id number] INR 1.06 0.90 - 1.20 [facility] NORAH ([place]) Comment: Interpretive data Oral anticoagulant therapeutic ranges: Venous thromboembolism prophylaxis or treatment: 2.0-3.0 CARDIOLOGY Standard range: 2.0-3.0 High-intensity range: 2.5-3.5 Refer to indication-specific guidelines for appropriate target ranges for prosthetic heart valve replacement. Current interpretive data was last revised on 2019. Testing performed by: [facility], [address] [place] [address], [id number] Blood 08/24/2025 9:33 AM CDT 08/24/2025 3:25 PM CDT Pedro Chow MD LAB BLOOD ORDERABLES Ronit l Result [facility] ALMAZAN ([place]) 1 [facility] [place] [address] * eGFR (08/22/2025 11:02 AM CDT) eGFR >90 >=60 mL/min/1. 73 m2 Comment: Interpretive Data Reference Interval Normal >/= 90 mL/min/1.73m2 Mildly decreased* 60 - 89 mL/min/1.73m2 Mildly to moderately decreased 45 - 59 mL/min/1.73m2 Moderately to severely decreased 30 - 44 mL/min/1.73m2 Severely decreased 15 - 29 mL/min/1.73m2 Kidney Failure < 15 mL/min/1.73m2 *Relative to young adult level Estimated glomerular filtration rate is determined by the 2020 CKD-EPI equation recommended by the National Kidney Foundation (A Unifying Approach to GFR Estimation: Recommendations of the NKF-ASK Task Force on Reassessing the Inclusion of Race in Diagnosing Kidney Disease, JASN 2020). The CKD-EPI equation should not be used for patients with unstable renal function and has not been validated in children and those over 70. Current interpretive data was last reviewed 2021. Testing performed by: [address], [id number] Blood 08/22/2025 11:0 2 AM CDT 08/22/2025 5:07 PM CDT us Pedro Chow MD LAB BLOOD ORDERABLES Ronit denney Result [facility] ([place]) 1 [facility] [place] [address] * Differential, auto (08/22/2025 11:02 AM CDT) Neutrophil abs 6.29 1.50 - 6.50 K/cumm Comment:Testing performed by : [facility], [address] [place] [address], [id number] Imm gran abs 0.03 0.00 - 0.10 K/cumm [facility] ([place]) Comment:Testing performed by : [facility], [address] [place] [address]., [id number] Lymphocyte abs 1.49 0.80 - 3.30 K/cumm [facility] ([place]) Comment:Testing performed by : [address] [address] Monocyte abs 0.41 0.20 - 0.80 K/cumm [facility] ([place]) Comment:Testing performed by : [address] [address] Eosinophil abs 0.08 0.00 - 0.50 K/cumm [facility] ([place]) Comment:Testing performed by : [address], [address] Basophil abs 0.05 0.00 - 0.10 K/cumm [facility] ([place]) Comment:Testing performed by : [facility], [address] [place] [address]., [id number] Neutrophil pct 75.3 % [facility] ([place]) Comment: Interpretive Data Percent cell count reference ranges are not reported, since discordance with absolute values may lead to misinterpretation of CBC data. Current Interpretive Data was last revised on 2018. Testing performed by: [facility], [address] [place] [address]., [id number] Imm gran pct 0.4 % [facility] ([place]) Comment: Interpretive Data Percent cell count reference ranges are not reported, since discordance with absolute values may lead to misinterpretation of CBC data. Current Interpretive Data was last revised on 2018. Testing performed by: [address] [address] Lymphocyte pct 17.8 % [facility] ([place]) Comment: Interpretive Data Percent cell count reference ranges are not reported, since discordance with absolute values may lead to misinterpretation of CBC data. Current Interpretive Data was last revised on 2018. Testing performed by: [address] [address] Monocyte pct 4.9 % [facility] ([place]) Comment: Interpretive Data Percent cell count reference ranges are not reported, since discordance with absolute values may lead to misinterpretation of CBC data. Current Interpretive Data was last revised on 2018. Testing performed by: [address] [address] Eosinophil pct 1.0 % [facility] ([place]) Comment: Interpretive Data Percent cell count reference ranges are not reported, since discordance with absolute values may lead to misinterpretation of CBC data. Current Interpretive Data was last revised on 2018. Testing performed by: [address] [address] [address] Basophil pct 0.6 % [facility] ([place]) Comment: Interpretive Data Percent cell count reference ranges are not reported, since discordance with absolute values may lead to misinterpretation of CBC data. Current Interpretive Data was last revised on 2018. Testing performed by: [address], [address] Blood 08/22/2025 11:0 2 AM CDT 08/22/2025 5:02 PM CDT us Pedro Chow MD LAB BLOOD ORDERABLES Ronit олег Result [facility] [place] 1 [facility] Department of Laboratories [place] [id number] * Pro B-type natriuretic peptide (08/22/2025 11:02 AM CDT) NT-proBNP 81 <=300 pg/mL Comment: Interpretive Comments: A. Dyspnea in Acute Care Setting All Ages: < 300 pg/ml, acute heart failure unlikely. < 50 yrs: 300 - 450 pg/ml, further investigation warranted. > 450 pg/ml, acute heart failure likely. 50 - 74 yrs: 300 - 900 pg/ml, further investigation warranted. > 900 pg/ml, acute heart failure likely . > or = 75 yrs: 450 - 1800 pg/ml, further investigation warranted. > 1800 pg/ml, acute heart failure likely. B. Non-acute Setting < 75 yrs < 125 pg/ml, rules out heart failure. > or = 125 pg/ml, further investigation warranted. > or = 75 yrs < 450 pg/ml, rules out heart failure. > or = 450 pg/ml, further investigation warranted. - Knowledge of each individual patient's NT-proBNP range may be more useful than using similar cut-points for every patient. Please note that marked elevations in NT-proBNP levels may be observed in state other than Left Ventricular Congestive Failure, including: acute coronary syndromes, right heart strain/failure (including pulmonary embolism and cor pulmonale), critical illness, renal failure, as well as advanced age. - References: 1. Brandi RIVERA et.al. Eur Heart J. 2006:27:330-337. 2. Norberto CASIANO, Rosie LE. J. AM Dorina Cardiol: Cardiovasc Imag. 2009;2: 216- 225. Interpretive Data Last Revised Date: 2018. Testing performed by: [facility], [address] [place] [address]., [address] Blood 08/22/2025 11:0 2 AM CDT 08/22/2025 5:02 PM CDT Pedro Chow MD LAB BLOOD ORDERABLES Ronit олег Result [facility] ([place]) 1 [facility] [place] [address] * (ABNORMAL) CBC with auto differential (08/22/2025 11:02 AM CDT) WBC 8.35 3.80 - 9.90 K/cumm Comment:Testing performed by : [facility], [address] [place] [address], [address] Hgb 14.4 11.9 - 15.5 g/dL [facility] ([place]) Comment:Testing performed by : [address], [address] Hct 46.5(H) 35.6 - 45.5 % [facility] ([place]) Comment:Testing performed by : [address], [address] Plt 294 150 - 400 K/cumm [facility] ([place]) Comment:Testing performed by : [address], [address] MPV 10.9 9.1 - 12.3 fL [facility] ([place]) Comment:Testing performed by : [address], [address] RBC 4.97 3.90 - 5.20 M/cumm [facility] ([place]) Comment:Testing performed by : [address], [address] MCV 93.6 81.3 - 96.4 fL [facility] ([place]) Comment:Testing performed by : [address], [address] MCH 29.0 27.1 - 33.3 pg [facility] ([place]) Comment:Testing performed by : [address], [address] MCHC 31.0(L) 32.3 - 35.7 g/dL [facility] ([place]) Comment:Testing performed by : [facility], [address] [place] [address], [address] RDW CV 14.0 11.1 - 14.9 % [facility] ([place]) Comment:Testing performed by : [facility], [address] [place] [address], [address] RDW SD 47.9 35.7 - 48.1 fL [facility] ALMAZ[facility] ([place]) Comment:Testing performed by : [facility], [address] [place] [address], [address] NRBC abs 0.00 0.00 - 0.01 K/cumm [facility] ALMAZAN ([place]) Comment:Testing performed by : [facility], [address] [place] [address], [address] Blood 08/22/2025 11:0 2 AM CDT 08/22/2025 5:02 PM CDT Pedro Chow MD LAB BLOOD ORDERABLES Ronit l Result Performing Organization Address [facility]/ZIP Co de Phone Number ERIK [facility] ([place]) 1 [facility] [employer] [place] [address] * aPTT (08/22/2025 11:02 AM CDT) aPTT 34 26 - 38 sec Comment: Interpretive Data Heparin therapeutic range: 66.0 - 100.0 seconds. Range based on correlation with therapeutic heparin activity range of 0.3 - 0.7 Units/mL. Current interpretive data was last revised on 2023. Testing performed by: [facility], [address] [place] [address], [address] Blood 08/22/2025 11:0 2 AM CDT 08/22/2025 5:02 PM CDT Pedro Chow MD LAB BLOOD ORDERABLES Ronit l Result Performing Organization Address City/[facility]/ZIP Co de Phone Number ERIK [facility] ([place]) 1 [facility] [place] [address] * Protime-INR (08/22/2025 11:02 AM CDT) PT See Comment 10.2 - 13.5 sec Comment:Testing performed by : [address] [address] INR See Comment 0.90 - 1.20 ERIK ALMAZAN ([place]) Comment: Interpretive data Oral anticoagulant therapeutic ranges: Venous thromboembolism prophylaxis or treatment: 2.0-3.0 CARDIOLOGY Standard range: 2.0-3.0 High-intensity range: 2.5-3.5 Refer to indication-specific guidelines for appropriate target ranges for prosthetic heart valve replacement. Current interpretive data was last revised on 2019. Testing performed by: [address] [address] Blood 08/22/2025 11:0 2 AM CDT 08/22/2025 5:02 PM CDT Pedro Chow MD LAB BLOOD ORDERABLES Edit ed Result - Final E[facility]K ALMAZAN ([place]) 1 [facility] [place] [address] * (ABNORMAL) Lipid panel (08/22/2025 11:02 AM CDT) Cholesterol 216(H) 30 - 199 mg/dL Comment: Interpretive Data Ages < or = 19 years Acceptable: <170 mg/dL Borderline high: 170-199 mg/dL High: >or= 200 mg/dL Ages > or = 20 years Desirable: <200 mg/dL Borderline high: 200-239 mg/dL High: >or= 240 mg/dL Literature References: 1. Expert Panel on Integrated Guidelines for Cardiovascular Health and Risk Reduction in Children and Adolescents. Pediatrics 2011;128:S213 2. NCEP Expert Panel. Circulation 2004;110:227 Current Interpretive Data was last revised on 2018. Testing performed by: [address] [address] Triglycerides 80 <=149 mg/dL ERIK ALMAZAN ([place]) Comment: Interpretive Data Ages < or = 9 years Acceptable: <75 mg/dL Borderline high: 75-99 mg/dL High: >or= 100 mg/dL Ages 10 to 20 years Acceptable: <90 mg/dL Borderline high: 90-129 mg/dL High: >or= 130 mg/dL Ages > or = 20 years Desirable: <150 mg/dL Borderline high: 150-199 mg/dL High: 200-499 mg/dL Very high: >or= 499 mg/dL Literature References: 1. Expert Panel on Integrated Guidelines for Cardiovascular Health and Risk Reduction in Children and Adolescents. Pediatrics 2011;128:S213 2. NCEP Expert Panel. Circulation 2004;110:227 Current Interpretive Data was last revised on 2018. Testing performed by: [facility], [address] [place] [address]., [address] HDL 72 >=40 mg/dL E[facility] ALMAZAN ([place]) Comment: Interpretive Data Ages < or = 19 years Acceptable: >45 mg/dL Borderline low: 40-45 mg/dL Low: <40 mg/dL Ages > or = 20 years Desirable: >or= 60 mg/dL Low: <40 mg/dL Literature References: 1. Expert Panel on Integrated Guidelines for Cardiovascular Health and Risk Reduction in Children and Adolescents. Pediatrics 2011;128:S213 2. NCEP Expert Panel. Circulation 2004;110:227 Current Interpretive Data was last revised on 2018. Testing performed by: [facility], [address] [place] [address]., [address] LDL, calculated 130(H) <=129 mg/dL [facility] ALMAZ[facility] ([place]) Comment: Interpretive Data Ages < or = 19 years Acceptable: <110 mg/dL Borderline high: 110-129 mg/dL High: >or= 130 mg/dL Ages > or = 20 years Optimal: <100 mg/dL Near optimal: 100-129 mg/dL Borderline high: 130-159 mg/dL High: >160 mg/dL Calculated using the Griffin LDL-C estimating equation. This equation was implemented on 2024. Prior to this date LDL-C was estimated using the Friedewald equation. Literature References: 1. Expert Panel on Integrated Guidelines for Cardiovascular Health and Risk Reduction in Children and Adolescents. Pediatrics 2011;128:S213 2. NCEP Expert Panel. Circulation 2004;110:227 3. Griffin Cristina et al. BRENT Cardiol. 2019March 10;5(5):540547. doi: 10.1001/jamacardio.2020.0013 Current Interpretive Data was last revised on 2024. Testing performed by: [address] [address] Non-HDL Cholesterol 144 mg/dL [facility] ALMAZ[facility] ([place]) Comment: Interpretive Data Ages < or = 19 years Acceptable: <120 mg/dL Borderline high: 120-144 mg/dL High: >145 mg/dL Ages > or = 20 years When triglycerides are >200 mg/dL, Non-HDL cholesterol is a secondary target of therapy with treatment goals that are 30 mg/dL greater than the LDL cholesterol target. Literature References: 1. Expert Panel on Integrated Guidelines for Cardiovascular Health and Risk Reduction in Children and Adolescents. Pediatrics 2011;128:S213 2. NCEP Expert Panel. Circulation 2004;110:227 Current Interpretive Data was last revised on 2018. Testing performed by: [address] [address] Chol/HDL ratio 3 [facility]E R [facility] ([place]) Comment:Testing performed by : [address] [address] Blood 08/22/2025 11:0 2 AM CDT 08/22/2025 5:02 PM CDT us Pedro Chow MD LAB BLOOD ORDERABLES Ronit denney Result ERIK DIEHL) 1 [facility] Department [place] [address] * Comprehensive metabolic panel (08/22/2025 11:02 AM CDT) Sodium 139 135 - 145 mmol/L Comment:Testing performed by : [address] [address] Potassium, pl 4.9 3.3 - 4.9 mmol/L [facility] ([place]) Comment:Testing performed by : [address] [address] Chloride 103 97 - 110 mmol/L [facility] AL[facility] ([place]) Comment:Testing performed by : [facility] [address] [place] [address]., [address] CO2 27 22 - 32 mmol/L [facility] ([place]) Comment:Testing performed by : [address] [address] Anion gap 9 2 - 15 mmol/L [facility] ([place]) Comment:Testing performed by : [address], [address] BUN 17 6 - 25 mg/dL [facility] ([place]) Comment:Testing performed by : [facility], [address] [place] [address], [address] Creatinine 0.62 0.60 - 1.10 mg/dL [facility] ([place]) Comment:Testing performed by : [address], [address] Glucose 105 70 - 199 mg/dL [facility] ([place]) Comment: Interpretive Data Fasting glucose >/= 126 mg/dl is diagnostic for diabetes. Fasting is defined as no caloric intake for at least 8 hours. Fasting glucose between 100 mg/dl to 125 mg/dl is diagnostic of prediabetes. In a patient with classic symptoms of hyperglycemia or hyperglycemic crisis, a random glucose >/= 200 mg/dl is diagnostic for diabetes. In the absence of unequivocal hyperglycemia, results should be confirmed by repeat testing. The classification and Diagnosis of Diabetes Diabetes Care 202; 46: S19-S40. Current interpretive data was last revised 2022. Testing performed by: [facility], [address] [place] [address]., [address] Calcium 10.0 8.5 - 10.3 mg/dL [facility] ([place] Comment:Testing performed by : [address] [address] Bilirubin, total 0.6 0.1 - 1.2 mg/dL [facility] [place] Comment:Testing performed by : [address] [address] Protein, pl 7.3 6.5 - 8.5 g/dL [facility] ([place] Comment:Testing performed by : [address], [address] Albumin 4.3 3.5 - 5.0 g/dL [facility] ([place]) Comment:Testing performed by : [facility], [address] [place] [address]., [address] Alk phos 62 40 - 130 Units/L [facility] ([place]) Comment:Testing performed by : [facility], [address] [place] [address]., [address] ALT 24 7 - 45 Units/L [facility] ([place]) Comment:Testing performed by : [facility], [address] [place] [address]., [address] AST 32 10 - 45 Units/L [facility] ([place]) Comment:Testing performed by : [facility], [address] [place] [address]., [address] Blood 08/22/2025 11:0 2 AM CDT 08/22/2025 5:02 PM CDT us Pedro Chow MD LAB BLOOD ORDERABLES Ronit l Result Performing Organization Address City/State/[facility] Co de Phone Number [facility] ([place]) 1 [facility] [place] [address] * XR Elbow Left 3+ Vw (08/20/2025 10:18 AM CDT) Anatomical Region Laterality Modality Upper Extremities, Elbow Left Compute d Radiography 08/20/2025 12:0 6 PM CDT Narrative 08/20/2025 12:07 PM CDT EXAM DESCRIPTION: 1. XR ELBOW LEFT 3 OR MORE VIEWS; 2. XR HUMERUS LEFT 2 OR MORE VIEWS REASON FOR STUDY: contusion left elbow Bruising that appeared on posterior lateral humerus x 3 days, no known trauma ; spontaneous ecchymosis posterior left arm FINDINGS: Four views left elbow and two views left humerus submitted without comparison. Left humerus: No acute fracture. Alignment is normal. Mild acromioclavicular joint osteoarthritis. Left elbow: No acute fracture. Alignment is normal. Mild ulnar trochlear joint osteoarthritis. No effusion. Chronic lateral epicondylitis is present. IMPRESSION: 1. No acute fracture. 2. Mild left ulnar trochlear joint osteoarthritis. 3. Left elbow chronic lateral epicondylitis. THIS IS AN ELECTRONICALLY VERIFIED FINAL REPORT 08/20/2025 12:07 PM - Electronically signed by Andrés Barkley M.D. MF: TOMMY Report ID: [id number] Reading Location: [id number] Procedure Note Andrés Barkley MD - 08/20/2025 EXAM DESCRIPTION: 1. XR ELBOW LEFT 3 OR MORE VIEWS; 2. XR HUMERUS LEFT 2 OR MORE VIEWS REASON FOR STUDY: contusion left elbow Bruising that appeared on posterior lateral humerus x 3 days, no knowntrauma ; spontaneous ecchymosis posterior left arm FINDINGS: Four views left elbow and two views left humerus submitted withoutcomparison. Left humerus: No acute fracture. Alignment is normal. Mild acromioclavicular joint osteoarthritis. Left elbow: No acute fracture. Alignment is normal. Mild ulnar trochlear joint osteoarthritis. No effusion. Chronic lateral epicondylitis is present. IMPRESSION: 1. No acute fracture. 2. Mild left ulnar trochlear joint osteoarthritis. 3. Left elbow chronic lateral epicondylitis. THIS IS AN ELECTRONICALLY VERIFIED FINAL REPORT 08/20/2025 12:07 PM - Electronically signed by Andrés Barkley M.D. MF: TOMMY Report ID: [id number] Reading Location: [id number] Pedro Chow MD IMG XR PROCEDURES Final R esult * XR Humerus Left 2 or More Views (08/20/2025 10:18 AM CDT) Anatomical Region Laterality Modality Upper Extremities, Upper Arm Left Com puted Radiography 08/20/2025 12:0 6 PM CDT Narrative 08/20/2025 12:07 PM CDT EXAM DESCRIPTION: 1. XR ELBOW LEFT 3 OR MORE VIEWS; 2. XR HUMERUS LEFT 2 OR MORE VIEWS REASON FOR STUDY: contusion left elbow Bruising that appeared on posterior lateral humerus x 3 days, no known trauma ; spontaneous ecchymosis posterior left arm FINDINGS: Four views left elbow and two views left humerus submitted without comparison. Left humerus: No acute fracture. Alignment is normal. Mild acromioclavicular joint osteoarthritis. Left elbow: No acute fracture. Alignment is normal. Mild ulnar trochlear joint osteoarthritis. No effusion. Chronic lateral epicondylitis is present. IMPRESSION: 1. No acute fracture. 2. Mild left ulnar trochlear joint osteoarthritis. 3. Left elbow chronic lateral epicondylitis. THIS IS AN ELECTRONICALLY VERIFIED FINAL REPORT 08/20/2025 12:07 PM - Electronically signed by Andrés Barkley M.D. MF: TOMMY Report ID: [id number] Reading Location: [id number] Procedure Note Andrés Barkley MD - 08/20/2025 EXAM DESCRIPTION: 1. XR ELBOW LEFT 3 OR MORE VIEWS; 2. XR HUMERUS LEFT 2 OR MORE VIEWS REASON FOR STUDY: contusion left elbow Bruising that appeared on posterior lateral humerus x 3 days, no knowntrauma ; spontaneous ecchymosis posterior left arm FINDINGS: Four views left elbow and two views left humerus submitted withoutcomparison. Left humerus: No acute fracture. Alignment is normal. Mild acromioclavicular joint osteoarthritis. Left elbow: No acute fracture. Alignment is normal. Mild ulnar trochlear joint osteoarthritis. No effusion. Chronic lateral epicondylitis is present. IMPRESSION: 1. No acute fracture. 2. Mild left ulnar trochlear joint osteoarthritis. 3. Left elbow chronic lateral epicondylitis. THIS IS AN ELECTRONICALLY VERIFIED FINAL REPORT 08/20/2025 12:07 PM - Electronically signed by Andrés Barkley M.D. MF: TOMMY Report ID: [id number] Reading Location: [id number] us Pedro Chow MD IMG XR PROCEDURES Final R esult * XR Shoulder Left 4 Views (07/28/2025 10:28 AM CDT) Anatomical Region Laterality Modality Upper Extremities, Shoulder Left Digi marlon Radiography Narrative 07/28/2025 10:53 AM CDT Radiographs of the left shoulder reviewed interpreted. No acute fractures, dislocations, or destructive osseous lesions. Moderate degenerative changes noted acromioclavicular joint with enlargement of the distal clavicle and subacromial spur. Mild superior migration of the humeral head. Glenohumeral joint space is well-maintained. Anita Cortes OMARI IMG XR PROCEDURES Final Result * Colonoscopy (10/28/2024 11:19 AM PROBATION AND PATROL AGENT) Anatomical Region Laterality Modality Other Narrative Procedure Note Amy Goss MD - 10/28/2024 11:19 AM CST [facility] Patient Name: Maryanne Barreto Procedure Date: 10/28/2024 11:19AM Date of : 1965 Admit Type: Outpatient Age: 59 Gender: Female Attending MD: Amy Goss M.D. Room: [facility] ENDOSCOPY ROOM 1 Note Status: Finalized Patient [...] under direct vision. The Pediatric Colonoscope PCF-H190L [id number] was introducedthrough the anus and advanced to [...] 11:19 AM Procedure Code(s): --- Professional --- 80148, Colonoscopy, flexible; diagnostic, including collection of specimen(s) by brushing or washing, when performed (separateprocedure) Diagnosis Code(s): --- Professional --- Z12.11, Encounter for screening for malignant neoplasm of colon K64.8, Other hemorrhoids CPT copyright 2020 [employer]. All rights reserved. The codes documented in this report are preliminary and upon corn sheller reviewmay be revised to meet current compliance requirements. Recognized by the [employer] for promoting quality in endoscopy Amy Goss MD ENDOSCOPY PROCEDURES Final Result * Diagnostic Mammogram Bilateral W Eder (08/20/2024) Anatomical Region Laterality Modality Breast Bilateral Mammography 08/20/2024 Historical Provider IMG MAMMO PROCEDURES Ronit l Result from Last 3 Months or Most Recently Relevant to Health Maintenance Insurance [facility] BLUE ACCESS DC BLUE ACCESS DC BLUE ACCESS DC Advance Directives For more information, please contact: [phone] * Full Code (Latest Code Status on File) Date Activated Date Inactivated Comments 10/28/2024 11:28 AM 10/28/2024 6:08 PM * Full Code Date Activated Date Inactivated Comments 10/28/2024 11:28 AM 10/28/2024 11:28 AM * Full Code Date Activated Date Inactivated Comments 02/05/2020 11:03 AM 02/05/2020 7:16 PM Care Teams Fisher Trawl Net Relationship Specialty Start Date End Date Pedro Chow MD [address] [place] [address] PCP - General Family Medicine 12/02/19 Gail Hendrickson COTA Residence Director Occupational Therapy 07/11/22
--- OUTSIDE RECORDS SUMMARY | 2025-09-05 16:16 | XMS_ITS | Encounter Summary ---
Author Organization [facility] Healthcare Address [address] [place] [address] Care Team Providers Care Electronic Scale Subassembler Name Role Phone Pedro Chow MD Primary Care Provider [phone] Gail Hendrickson Unavailable Unavailable Encounter Details Date Type Department Care Team (Late st Contact Info) Description 09/04/2025 Results Follow-Up [facility] [address] [facility] [place] [address] Pedro Chow MD [address] [place] [address] Protime-INR, aPTT Social History Tobacco Use Types Packs/Day Years Used Date Smoking Tobacco: Never Smokeless Tobacco: Never Alcohol Use Standard Drinks/Week Comments Never 0 (1 standard drink = 0.6 oz pur e alcohol) [facility] Utilities Answer Date Recorded In the past 12 months has [facility] [employer], gas, oil, or water [employer] threatened to shut off services in your [...] 02/28/2025 How often do you attend chur or taoist services? More than 4 times per year 02/28/2025 Do you belong to any clubs o r organizations such as restorationist groups, unions, fraternal or athletic groups, or [...] staff should administer the PHQ-9) 0 08/22/2025 [facility] - Occupational Stress [...] any time in the past 12 m [facility], were you homeless or living in a assisted (including now)? 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
--- OUTSIDE RECORDS SUMMARY | 2025-09-05 16:16 | XMS_ITS | Clinical Summary ---
Author Organization [facility] [email or web address] Address [address] [place] [address] Care Team Providers Care Ornamental Metal Worker Name Role Phone Unavailable Primary Care Provider Unavailabl e Source Comments [facility] [email or web address],non-owned Affiliates and Associated Physician Practices is amultiple site organization consisting of ambulatory clinics and hospital sitesin [place], [place], [place] and [place]. This disclosure is being madepursuant to the Care Everywhere program and may not contain all information available regarding this patient. 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 Gender Identity Not on file Sexual Orientation [...] 10:39 AM CDT Height 180.3 cm (5' 11) 04/27/2013 10: 39 AM CDT Body Mass [...] SCREENING 1965 LIPID TESTING 1965 MAMMOGRAM 1965 HIV SCREENING 1979 HEPATITIS C SCREENING 10/20/1982 DTAP/TDAP/TD VACCINES (1 - Tdap) 1983 PNEUMOCOCCAL VACCINE 50+ (1 of 1 - PCV) 2014 ZOSTER VACCINE (1 of 2) 2014 DEPRESSION SCREENING 11/10/2024 COVID-19 VACCINE (1 - 2023-2 5 season) 2025 INFLUENZA VACCINE (#1) 2025 Respiratory Syncytial Virus (RSV) Vaccine Pt: or [...] to complete this topic MENINGOCOCCAL (Group B) VACC INE SHARED DECISION-MAKING Aged Out No longer eligibl e based on patient's age to complete this topic MENINGOCOCCAL GROUPS A/C/Y/W VACCINE Aged Out No longer eligible b ased on patient's age to complete this topic
== END 2025-09-05 14:33 | disposition home or self-care (01) ==
LOC: CHSIMG 14:33
PROVIDERS: PCP Family Medicine; Visit Provider Family Medicine
DX: Z12.31 Encounter for screening mammogram for malignant neoplasm of breast (principal)
CPT/HCPCS: 77063; 77067